=== PATIENT | male | born 1945 | race Caucasian/White ===

== ENCOUNTER → 2016-08-14 | Outpatient (CLI) | payer MEDICARE ==
--- NOTE | 2016-08-14 11:10 | RAD ---
EXAM: Bilateral lower extremity arterial Doppler sonogram. HISTORY: Pain. TECHNIQUE: Grayscale and color Doppler sonographic imaging of the lower 70 arteries with spectral waveform analysis was performed. COMPARISON: None. FINDINGS: There is atherosclerotic plaque and there are biphasic waveforms throughout the bilateral lower extremity arteries. The peak systolic velocities on the right measure 295 cm/s within the external iliac artery, 181 cm/s within the common femoral artery, 213 cm/s within the deep femoral artery, 269 cm/s within the proximal superficial femoral artery, 222 cm/s within the mid superficial femoral artery, 147 cm/s within the distal superficial femoral artery, 283 cm/s within the popliteal artery, 78 cm/s within the proximal posterior tibial artery, 212 cm/s with the distal posterior tibial artery, 160 cm/s within the peroneal artery, 240 cm/s within the anterior tibial artery, and 75 cm/s within the dorsalis pedis artery. The peak systolic velocities on the left measure 224 cm/s within the external iliac artery, 212 cm/s within the common femoral artery, 329 cm/s within the deep femoral artery, 259 cm/s within the proximal superficial femoral artery, 241 cm/s within the mid superficial femoral artery, 164 cm/s within the distal superficial femoral artery, 138 cm/s within the popliteal artery, 79 cm/s within the proximal posterior tibial artery, 97 cm/s with the distal posterior tibial artery, 58 cm/s within the peroneal artery, 201 cm/s within the anterior tibial artery, and 75 cm/s within the dorsalis pedis artery. IMPRESSION: 1. Bilateral lower extremity atherosclerotic plaque and elevated peak systolic velocities extending from the external iliac arteries to the anterior tibial arteries, with relative sparing of the posterior tibial arteries and left peroneal artery, consistent with hemodynamically significant stenosis. 2. No evidence of lower extremity arterial occlusion.
== END | disposition home or self-care (01) ==
LOC: US 09:40
PROVIDERS: ATTEND Family Medicine
DX: I73.9 Peripheral vascular disease, unspecified (principal); M79.605 Pain in left leg; M79.604 Pain in right leg; I74.3 Embolism and thrombosis of arteries of the lower extremities
CPT/HCPCS: 93925

== ENCOUNTER → 2016-09-16 | Outpatient (CLI) | payer MEDICARE ==
[2016-09-02 12:15] VITALS: BP 141/68
[~2016-09-16] MED LIST: ALBU2.5V14 NEB; FURO-68 PO; IPRA4AER IH; LISI10TA2 PO; POTA10TA5 PO; VENTOLIN HFA18 GM INH; VERA120C2 PO
--- NOTE | 2016-09-16 17:30 | RAD ---
INDICATION: COPD COMPARISON: 06/13/2010 FINDINGS: Frontal and lateral views of chest obtained. Coarsened lung markings throughout the bilateral lungs. Calcified nodule in the right lower lung, 13 mm. Cardiac silhouette is not enlarged IMPRESSION: Coarsened appearance throughout the bilateral lungs which can be seen with severe emphysema. Repeat demonstration of calcified nodule right lower lung, could be calcified granuloma.
== END | disposition home or self-care (01) ==
LOC: RAD 14:57
PROVIDERS: ATTEND Family Medicine
DX: J44.9 Chronic obstructive pulmonary disease, unspecified (principal)
CPT/HCPCS: 71020

== ENCOUNTER 2017-05-07 09:59 | Inpatient (IN) | payer MEDICARE ==
[~2017-05-07] VITALS: Ht 180.3 cm; Wt 75.0 kg
[2017-05-07] MEDS ORDERED: IPRATRPIUM/ALBUTEROL 0.5/2.5MG 3 ML NEBU. NEB ONE (10:15)
[2017-05-07] MEDS ORDERED: methylPREDNISolone SOD SUCC PF 125 MG/2 ML VIAL. IV ONE (10:15)
--- NOTE | 2017-05-07 10:19 | PHYS DOC ---
Adult General Chief Complaint Chief Complaint: SHORTNESS OF BREATH HPI HPI Patient is a 71 year old male who presents with complaint of shortness of breath for the past few days. The patient went to Dr. Rojo, his primary physician, this morning and was sent to the emergency department for further evaluation and treatment. Patient has history of COPD. The patient was found to have increased respiratory effort and required an increase in oxygen to keep his oxygen levels above 91%. Patient states that he has been coughing up whitish phlegm. Patient denies any fevers or chest pain at this time. Patient states that he does feel very weak and fatigued due to his difficulty breathing. Patient last took a breathing treatment yesterday and has not taken anything for his symptoms today. Review of Systems Review of Systems Constitutional: Fatigue, denies fever or chills [] Eyes: Denies change in visual acuity, redness, or eye pain [] HENT: Denies nasal congestion or sore throat [] Respiratory: Productive cough, shortness of breath[] Cardiovascular: Denies chest pain or edema[] GI: Denies abdominal pain, nausea, vomiting, bloody stools or diarrhea [] : Denies dysuria or hematuria [] Musculoskeletal: Denies back pain or joint pain [] Integument: Denies rash or skin lesions [] Neurologic: Denies headache, focal weakness or sensory changes [] Current Medications Current Medications Current Medications Medications (Trade) Dose Ordered Sig/Radha Start Time Stop Time Status Last Admin Dose Admin Albuterol/ Ipratropium (Duoneb) 6 ml 1X ONCE 05/07/17 10:15 05/07/17 10:18 DC 05/07/17 10:29 6 ML Methylprednisolone Sodium Succinate (SOLU-Medrol 125MG VIAL) 125 mg 1X ONCE 05/07/17 10:15 05/07/17 10:18 DC 05/07/17 10:38 125 MG Allergies Allergies Allergies Coded Allergies Type Severity Reaction Last Updated Verified No Known Drug Allergies 08/26/16 No Physical Exam Physical Exam Constitutional: Alert, afebrile, appears in mild to moderate risk for distress. [] HENT: Normocephalic, atraumatic, bilateral external ears normal, oropharynx moist, no oral exudates, nose normal. [] Eyes: PERRLA, EOMI, conjunctiva normal, no discharge. [] Neck: Normal range of motion, no tenderness, supple, no stridor. [] Cardiovascular:Heart rate regular rhythm, no murmur [] Lungs & Thorax: Severely strict of air movement bilaterally, faint extremity wheezes bilaterally, no rales[] Abdomen: Bowel sounds normal, soft, no tenderness, no masses, no pulsatile masses. [] Skin: Warm, dry, no erythema, no rash. [] Back: No tenderness, no CVA tenderness. [] Extremities: No tenderness, no cyanosis, no clubbing, ROM intact, no edema. [] Neurologic: Alert and oriented X 3, normal motor function, normal sensory function, no focal deficits noted. [] Current Patient Data Vital Signs Vital Signs Date Time Temp Pulse Resp B/P (MAP) Pulse Ox O2 Delivery O2 Flow Rate FiO2 05/07/17 11:05 80 20 115/59 (77) 99 Nasal Cannula 3.0 05/07/17 10:08 97.8 97.8 Lab Values Laboratory Tests Test 05/07/17 10:20 White Blood Count 21.3 x10^3/uL (4.0-11.0) H Red Blood Count 3.79 x10^6/uL (4.30-5.70) L Hemoglobin 11.4 g/dL (13.0-17.5) L Hematocrit 33.8 % (39.0-53.0) L Mean Corpuscular Volume 89 fL (79-100) Mean Corpuscular Hemoglobin 30 pg (25-35) Mean Corpuscular Hemoglobin Concent 34 g/dL (31-37) Red Cell Distribution Width 13.5 % (11.5-14.5) Platelet Count 201 x10^3/uL (140-400) Neutrophils (%) (Auto) 84 % (31-73) H Lymphocytes (%) (Auto) 6 % (24-48) L Monocytes (%) (Auto) 9 % (0-9) Eosinophils (%) (Auto) 0 % (0-3) Basophils (%) (Auto) 1 % (0-3) Neutrophils # (Auto) 17.8 x10^3uL (1.8-7.7) H Lymphocytes # (Auto) 1.4 x10^3/uL (1.0-4.8) Monocytes # (Auto) 2.0 x10^3/uL (0.0-1.1) H Eosinophils # (Auto) 0.0 x10^3/uL (0.0-0.7) Basophils # (Auto) 0.1 x10^3/uL (0.0-0.2) Platelet Estimate Pending Sodium Level 134 mmol/L (136-145) L Potassium Level 4.0 mmol/L (3.5-5.1) Chloride Level 98 mmol/L (98-107) Carbon Dioxide Level 29 mmol/L (21-32) Anion Gap 7 (6-14) Blood Urea Nitrogen 33 mg/dL (8-26) H Creatinine 2.9 mg/dL (0.7-1.3) H Estimated GFR (Cockcroft-Gault) 21.6 BUN/Creatinine Ratio 11 (6-20) Glucose Level 117 mg/dL (70-99) H Lactic Acid Level 1.6 mmol/L (0.4-2.0) Calcium Level 9.1 mg/dL (8.5-10.1) Total Bilirubin 0.6 mg/dL (0.2-1.0) Aspartate Amino Transferase (AST) 18 U/L (15-37) Alanine Aminotransferase (ALT) 27 U/L (16-63) Alkaline Phosphatase 67 U/L (46-116) Total Protein 7.9 g/dL (6.4-8.2) Albumin 3.3 g/dL (3.4-5.0) L Albumin/Globulin Ratio 0.7 (1.0-1.7) L Laboratory Tests 05/07/17 10:20 Laboratory Tests 05/07/17 10:20 EKG EKG Interpreted by me: Heart rate 88, sinus rhythm, multiple PACs, normal axis, no acute ST/T-wave abnormalities present[] Radiology/Procedures Radiology/Procedures [facility] [address] [place] [address] IMAGING REPORT Signed PATIENT: DANILO FIERRO ACCOUNT: [id number] : 1945 LOCATION: ER AGE: 71 SEX: M EXAM STATUS: REG ER ORD. PHYSICIAN: DANIELLE AUSTIN MD REASON: shortness of breath PROCEDURE: PORTABLE CHEST 1V Portable chest, 05/07/2017: History: Shortness of breath Comparison is made to a study from 09/16/2016. The heart size is normal. There is an unchanged coarse calcification in the right lower chest. Considerable pleural thickening is again noted in the apical regions with underlying streaky and patchy parenchymal opacities. The right upper lobe opacities appear to have worsened slightly. There are unchanged linear basilar opacities compatible with scars. No new pulmonary abnormality is seen. There is no evidence of pleural fluid. IMPRESSION: 1. Emphysema with moderate bilateral pleural/parenchymal scarring. 2. Right upper lobe parenchymal opacities appear to have worsened slightly raising the possibility of active infection. TB cannot be excluded. DICTATED and SIGNED BY: KAY AGUSTIN MD DATE: 05/07/17 1039 CC: DANIELLE AUSTIN MD; KEL ROJO MD ~ [] Course & Med Decision Making Course & Med Decision Making Pertinent Labs and Imaging studies reviewed. (See chart for details) The patient was started on IV Solu-Medrol and DuoNeb breathing treatments in the emergency department. Patient's chest x-ray shows right-sided upper lobe infiltrates consistent with acute pneumonia. The patient has had no recent travel or exposure to known tuberculosis infected patient, thus I feel these infiltrates or less likely the result of acute tuberculosis infection. The patient was started on IV Levaquin. I spoke with Dr. Rojo who accepted care patient in hospital. A consult was placed to Dr. Leggett of pulmonology to follow patient in hospital. Dragon Disclaimer Dragon Disclaimer This electronic medical record was generated, in whole or in part, using a voice recognition dictation system. Departure Departure Impression: Primary Impression: Community acquired pneumonia Additional Impressions: COPD with acute exacerbation Acute renal failure Disposition: 09 ADMITTED INPATIENT Admitting Physician: Kel Rojo Condition: GUARDED Referrals: KEL ROJO MD (PCP) Problem Qualifiers Primary Impression: Community acquired pneumonia Laterality: right Lung location: upper lobe of lung Qualified Codes: J18.1 - Lobar pneumonia, unspecified organism Additional Impressions: Acute renal failure Acute renal failure type: unspecified Qualified Codes: N17.9 - Acute kidney failure, unspecified DANIELLE AUSTIN MD May 07, 2017 10:19
[2017-05-07] MEDS: IPRATRPIUM/ALBUTEROL 0.5/2.5MG 3 ML NEBU. NEB SCH ×3 (10:29→19:39)
[2017-05-07 10:38] LABS: BASO # 0.1 x10^3/uL (0.0-0.2); BASO % 1 % (0-3); EOS % 0 % (0-3); HEMATOCRIT 33.8 % (39.0-53.0); HEMOGLOBIN 11.4 g/dL (13.0-17.5); LYMPH # 1.4 x10^3/uL (1.0-4.8); LYMPH % 6 % (24-48); MEAN CORPUSCULAR HEMOGLOBIN 30 pg (25-35); MEAN CORPUSCULAR HGB CONC 34 g/dL (31-37); MEAN CORPUSCULAR VOLUME 89 fL (79-100); MONO % 9 % (0-9); NEUT % 84 % (31-73); PLATELET COUNT 201 x10^3/uL (140-400); RED BLOOD COUNT 3.79 x10^6/uL (4.30-5.70); RED CELL DISTRIBUTION WIDTH 13.5 % (11.5-14.5); WHITE BLOOD COUNT 21.3 x10^3/uL (4.0-11.0)
[2017-05-07 10:39] LABS: CALCIUM 9.1 mg/dL (8.5-10.1); CREATININE 2.9 mg/dL (0.7-1.3); GFR 21.6
--- NOTE | 2017-05-07 10:40 | EKG ---
[facility] [address] [place] [address] Test Date: 2017-05-07 Test Time: 10:09:39 Pat Name: DANILO FIERRO Department: Room: Gender: M Reservations And Ticketing Agent: : 1945 Requested By: DANIELLE AUSTIN Order Number: [id number] Reading MD: Lawrence Graham Measurements Intervals [place] Rate: 88 P: 90 SC: 142 QRS: 19 QRSD: 86 T: 80 QT: 354 QTc: 432 Interpretive Statements SINUS RHYTHM ATRIAL PREMATURE COMPLEX(ES) QRS(T) CONTOUR ABNORMALITY CONSIDER ANTEROSEPTAL MYOCARDIAL DAMAGE T ABNORMALITY IN HIGH LATERAL LEADS Electronically Signed On 05-28-2017 16:38:41 CDT by Lawrence Graham
[2017-05-07 10:46] LABS: ALBUMIN 3.3 g/dL (3.4-5.0); ALBUMIN/GLOBULIN RATIO 0.7 (1.0-1.7); TOTAL BILIRUBIN 0.6 mg/dL (0.2-1.0); TOTAL PROTEIN 7.9 g/dL (6.4-8.2)
--- NOTE | 2017-05-07 10:48 | RAD ---
Portable chest, 05/07/2017: History: Shortness of breath Comparison is made to a study from 09/16/2016. The heart size is normal. There is an unchanged coarse calcification in the right lower chest. Considerable pleural thickening is again noted in the apical regions with underlying streaky and patchy parenchymal opacities. The right upper lobe opacities appear to have worsened slightly. There are unchanged linear basilar opacities compatible with scars. No new pulmonary abnormality is seen. There is no evidence of pleural fluid. IMPRESSION: 1. Emphysema with moderate bilateral pleural/parenchymal scarring. 2. Right upper lobe parenchymal opacities appear to have worsened slightly raising the possibility of active infection. TB cannot be excluded.
[2017-05-07] MEDS ORDERED: ALBUTEROL SULFATE 2.5 MG/3 ML NEBU. NEB ONE (11:15)
[2017-05-07] MEDS: IV NORMAL SALINE 1000ML BAG 1,000 ML IV SCH ×2 (11:42→18:22)
[2017-05-07] MEDS ORDERED: ACETAMINOPHEN 325 MG TABLET. PO PRN (11:45)
[2017-05-07] MEDS ORDERED: ONDANSETRON PF 4 MG/2 ML VIAL. IV PRN (11:45)
[2017-05-07] MEDS ORDERED: levOFLOXacin PER PHARMACY. MC PRN ×2 (11:45)
[2017-05-07 12:21] LABS: PLT ESTIMATE ADEQUATE (ADEQUATE)
[2017-05-07 12:25] VITALS: BP 128/56
[2017-05-07] MEDS ORDERED: IV NORMAL SALINE 1000ML BAG 1,000 ML IV SCH (12:35)
[2017-05-07] MEDS ORDERED: ENOXAPARIN 40 MG/0.4 ML SYRINGE. SQ SCH (12:45)
[2017-05-07] MEDS ORDERED: NON FORMULARY ITEM (Albuterol Sulfate (Ventolin Hfa Inhaler) 2 PUFF) INH SCH (13:00)
[2017-05-07] MEDS ORDERED: NON FORMULARY ITEM (Ipratropium/Albuterol Sulfate (Combivent Respimat Inhal) 2 INH) IH SCH (13:00)
--- NOTE | 2017-05-07 13:05 | PDOC ---
Provider Note Provider Note DICTATED BELTRAN BARRIOS MD May 07, 2017 13:05
--- NOTE | 2017-05-07 14:58 | CONS ---
DATE OF CONSULTATION: 05/07/2017 PULMONARY CONSULTATION ATTENDING PHYSICIAN: Dr. Rojo. REASON FOR CONSULTATION: Abnormal chest x-ray, hypoxia, persistent cough. HISTORY OF PRESENT ILLNESS: The patient is a 71-year-old male who has a history of COPD with extensive bullous lung disease involving the upper lobes. He presented to his primary care physician, Dr. Rojo with complaint of shortness of breath and was sent to the Emergency Room. The patient normally uses 3 liters of oxygen on a 24-hour basis. His oxygen saturation was 91% in the ER. The patient states that he has been coughing up for the last 1 year, is usually milky white. He denies any weight loss, in fact, states that he has gained weight. He smoked for 50 years, 1 pack per day, quit 3 years ago. He denies any hemoptysis. He states that he had a cold sweat this morning. He denies any chronic night sweats. He states that he had exposure to TB with his dad ____. His dad was treated. The patient's chest x-ray was reviewed and it shows mild patchy ill-defined parenchymal infiltrates in the right upper lobe, which upon my review, appear to be similar to the x-ray from September 2016. Radiologist felt that there was some mild increase and it may be a possibility. His CT chest was reviewed by me from 2012 up to 2015. He had extensive bullous lung disease involving the upper lobes along with a parenchymal scarring. He was started on antibiotics, Levaquin. I have been asked to see him for further evaluation. PAST MEDICAL HISTORY: Significant for history of COPD, could be severe. History of extensive bullous lung disease on his CT chest. History of chronic respiratory failure. ____ history of TB exposures. PAST SURGICAL HISTORY: No recent surgery. ALLERGIES: None. CURRENT MEDICATIONS: Reviewed as listed in the MRAD including Lovenox for DVT prophylaxis, DuoNebs and Levaquin. REVIEW OF SYSTEMS: Twelve-point system obtained. Pertinent positives discussed in my history of present illness, otherwise noncontributory. All systems that were negative were reviewed as well. SOCIAL HISTORY: Smoked for 50 years, quit 3 years ago, 1 pack per day. He does have TB exposure to his dad in the 50s. PHYSICAL EXAMINATION: GENERAL: He is awake, following commands, in no obvious respiratory distress. VITAL SIGNS: His pulse ox is 99% on 3 liters. He is afebrile. HEENT: Sclerae nonicteric. NECK: Supple. LUNGS: Diminished breath sounds. CARDIOVASCULAR: Regular rate and rhythm. ABDOMEN: Soft. EXTREMITIES: With no pitting edema. LABORATORY DATA: Reviewed. White cell count 21.3, hemoglobin 11.4 and platelets are 201. Chemistries were reviewed. BUN 33 and creatinine 2.9. IMPRESSION: Suspected severe chronic obstructive pulmonary disease with chronic respiratory failure and extensive upper lobe bullous lung disease, now presents with increasing cough and mild exertional dyspnea. In fact, the cough has been chronic and is productive of milky sputum. He has no obvious weight loss. He does have a history of tuberculosis exposure in the 50s and at that time, his dad was treated for that condition. He has no chronic night sweats. The differential diagnoses would include: 1. Superimposed pneumonia involving the right upper lobe in a patient who has severe underlying bullous lung disease. 2. Cannot exclude the possibilities of chronic infection such as Mycobacterium avium complex infection. 3. Clinically, less likely Mycobacterium tuberculosis. 4. Underlying severe chronic obstructive pulmonary disease with extensive bullous lung disease. RECOMMENDATIONS: 1. Obtain noncontrast CT chest to better assess for parenchymal infiltrates and the extensive bullous lung disease and we will make comparison from previous CAT scans. 2. Continue with empiric antibiotic. 3. Obtain sputum for culture, sensitivity and AFB. 4. Continue present oxygen. 5. Continue bronchodilators. 6. Further recommendations to follow after review of CT chest and we will assess the need for bronchoscopy. Discussed with RN. BELTRAN BARRIOS MD DR: LAKHWINDER/james JOB#: [id number] / [id number]
[2017-05-07 15:00] VITALS: BP 130/58
[2017-05-07] MEDS: VERAPAMIL SR 120 MG TABLET.ER. PO SCH (15:15)
[2017-05-07] MEDS: LISINOPRIL 10 MG TABLET PO SCH (15:16)
--- NOTE | 2017-05-07 15:39 | RAD ---
CT chest Indication: Right upper lobe pneumonia Technique: CT chest without IV contrast with multiplanar reformats. Comparison: Chest x-ray from the same day and CT chest from 05/17/2016 Findings: Neck bases clear. Heart is normal in size. Coronary artery calcifications. No pericardial or pleural effusion. No axillary, mediastinal adenopathy. Calcified subcarinal and right hilar lymph nodes. Bilateral apical pleural thickening. Severe emphysematous changes seen within lungs with areas of scarring and bronchiectasis. Large calcified granuloma in the right middle lobe. No pneumothorax. Punctate calcified granulomas along the right major fissure. Ill-defined opacity seen in the left upper lobe approximately measuring 1.0 x 2.6 cm (series 2 image 30), new compared to prior study. Similar opacitiy seen in the right upper lobe measuring 1.5 x 1.0 cm (series 2 image 20). Punctate calcified foci in the spleen suggesting healed granulomatous disease. Probable small gallstones. Adrenal glands are within normal limits. No suspicious bony lesion. Impression: 1. Severe emphysema changes. 2. New Ill-defined opacities in the right upper lobe and left upper lobe as described above may represent confluent fibrosis. However, lung malignancy is not ruled out. Short-term follow-up in 3 months and/or PET/CT recommended. 3. Stable thickening of the bilateral apical pleura. PQRS Compliance Statement: One or more of the following individualized dose reduction techniques were utilized for this examination: 1. Automated exposure control 2. Adjustment of the mA and/or kV according to patient size 3. Use of iterative reconstruction technique
[2017-05-07] MEDS ORDERED: PRED-220 PO (17:21)
[2017-05-07] MEDS ORDERED: [UNRECOGNIZED DRUG - OTHER] PO (17:21)
--- NOTE | 2017-05-07 18:30 | HP ---
ADMIT DATE: 05/07/2017 CHIEF COMPLAINT: Shortness of breath. HISTORY OF PRESENT ILLNESS AND HOSPITAL COURSE: This patient is a 71-year-old male with known severe emphysema who came to the office for routine checkup, was found to be acutely ill, stating that he had been increasingly short of breath for the last 3 days. The patient was hypoxic in the office and oxygen was increased to 5 liters obtaining an O2 sat of 90% which would quickly drop with any activity. Due to severity of illness, the patient was directed to go directly to the Emergency Room for evaluation where he was evaluated and found to have hypoxemia with exacerbation of COPD and evidence of community-acquired pneumonia on chest x-ray. Due to severity of illness, he was admitted directly to the hospital for further evaluation and treatment and pulmonary consultation. The patient was started on routine breathing treatments, IV steroids, and IV antibiotics were given. PAST MEDICAL HISTORY: Significant for: 1. COPD. 2. History of congestive heart failure. 3. Hypertension. 4. Peripheral vascular disease. 5. Peripheral neuropathy. MEDICATIONS ON ADMISSION: Verapamil 120 mg daily, Pletal 100 mg b.i.d., Combivent inhaler 1 puff q.i.d., albuterol inhaler 2 puffs q. 6 p.r.n., 2 liters of oxygen continuously, albuterol nebulizer solutions q. 4 hours p.r.n., gabapentin 200 mg 3 times a day, prednisone 10 mg a day, Lasix 40 mg a day, potassium 10 mEq a day, lisinopril 10 mg a day, Flovent 220 mcg 2 puffs b.i.d. ALLERGIES: He has no known drug allergies. PAST SURGICAL HISTORY: Denies surgery. FAMILY HISTORY: Significant for mother who of congestive heart failure, father who with complications of tuberculosis, a brother who has emphysema, a sister who has breast cancer with brain metastasis apparently. SOCIAL HISTORY: He has a greater than 40-pack years history of smoking, quit smoking 6 years ago. He lives with his brother. The patient is on disability due to significant vision loss as well as ongoing COPD. REVIEW OF SYSTEMS: Positive for increasing shortness of breath and cough as well as ongoing fatigue. The patient denies fever or chills. The patient denies nausea, vomiting or diarrhea. PHYSICAL EXAMINATION: GENERAL: This is a thin male, in moderate distress. He is alert and oriented. HEENT: Revealed dry mucous membranes. NECK: Supple, without JVD or bruits. CARDIAC: Regular rate and rhythm. LUNGS: Reveal coarse breath sounds with wheezes bilaterally. ABDOMEN: Soft, nontender. EXTREMITIES: Have 1+ pulses without significant edema. NEUROLOGIC: Showed no unilateral findings. ASSESSMENT: 1. Acute on chronic respiratory failure. 2. Exacerbation of chronic obstructive pulmonary disease. 3. Acute on chronic renal failure with baseline creatinine of 1.2, current creatinine of 2.9. 4. Peripheral vascular disease. 5. Hypertension. PLAN: To proceed with IV antibiotics, pulmonary toilet including IV steroids and breathing treatments and oxygen support and consult pulmonary medicine for further evaluation and treatment. MATT PAYTON MD DR: JEFFRY/james JOB#: [id number] / [id number]
[2017-05-07 19:00] VITALS: BP 93/49
[2017-05-07 23:00] VITALS: BP 103/58
[2017-05-08] MEDS: IV NORMAL SALINE 1000ML BAG 1,000 ML IV SCH ×2 (01:02→07:42)
[2017-05-08 03:00] VITALS: BP 118/50
[2017-05-08 04:41] LABS: BASO % 0 % (0-3); EOS % 0 % (0-3); HEMOGLOBIN 9.9 g/dL (13.0-17.5); LYMPH # 0.4 x10^3/uL (1.0-4.8); LYMPH % 4 % (24-48); MEAN CORPUSCULAR HEMOGLOBIN 31 pg (25-35); MEAN CORPUSCULAR HGB CONC 34 g/dL (31-37); MEAN CORPUSCULAR VOLUME 90 fL (79-100); MONO % 3 % (0-9); NEUT % 93 % (31-73); PLATELET COUNT 157 x10^3/uL (140-400); RED BLOOD COUNT 3.23 x10^6/uL (4.30-5.70); RED CELL DISTRIBUTION WIDTH 13.3 % (11.5-14.5); WHITE BLOOD COUNT 9.3 x10^3/uL (4.0-11.0)
[2017-05-08 05:00] LABS: ALBUMIN 2.7 g/dL (3.4-5.0); ALBUMIN/GLOBULIN RATIO 0.6 (1.0-1.7); CALCIUM 8.7 mg/dL (8.5-10.1); CREATININE 2.1 mg/dL (0.7-1.3); GFR 31.4; POTASSIUM 5.3 mmol/L (3.5-5.1); TOTAL BILIRUBIN 0.2 mg/dL (0.2-1.0); TOTAL PROTEIN 7.1 g/dL (6.4-8.2)
[2017-05-08 07:00] VITALS: BP 136/55
[2017-05-08] MEDS: IPRATRPIUM/ALBUTEROL 0.5/2.5MG 3 ML NEBU. NEB SCH ×3 (08:00→15:39)
[2017-05-08] MEDS: ENOXAPARIN 30 MG/0.3 ML SYRINGE. SQ SCH (08:48)
[2017-05-08] MEDS: VERAPAMIL SR 120 MG TABLET.ER. PO SCH (08:48)
[2017-05-08] MEDS: LISINOPRIL 10 MG TABLET PO SCH (08:48)
[2017-05-08 10:50] VITALS: BP 100/39
--- NOTE | 2017-05-08 12:02 | PDOC ---
PULMONARY PROGRESS NOTES Subjective feels better Vitals Vital Signs Date Time Temp Pulse Resp B/P (MAP) Pulse Ox O2 Delivery O2 Flow Rate FiO2 05/08/17 10:50 97.7 59 18 100/39 (59) 100 Nasal Cannula 3.0 97.7 General: Alert, No acute distress Lungs: Other (decrease bases) Cardiovascular: S1 Abdomen: Soft Neuro Exam: Alert Extremities: No Edema Skin: Warm Labs Laboratory Tests Test 05/07/17 10:20 05/08/17 04:18 White Blood Count 21.3 x10^3/uL (4.0-11.0) 9.3 x10^3/uL (4.0-11.0) Red Blood Count 3.79 x10^6/uL (4.30-5.70) 3.23 x10^6/uL (4.30-5.70) Hemoglobin 11.4 g/dL (13.0-17.5) 9.9 g/dL (13.0-17.5) Hematocrit 33.8 % (39.0-53.0) 29.0 % (39.0-53.0) Mean Corpuscular Volume 89 fL (79-100) 90 fL (79-100) Mean Corpuscular Hemoglobin 30 pg (25-35) 31 pg (25-35) Mean Corpuscular Hemoglobin Concent 34 g/dL (31-37) 34 g/dL (31-37) Red Cell Distribution Width 13.5 % (11.5-14.5) 13.3 % (11.5-14.5) Platelet Count 201 x10^3/uL (140-400) 157 x10^3/uL (140-400) Neutrophils (%) (Auto) 84 % (31-73) 93 % (31-73) Lymphocytes (%) (Auto) 6 % (24-48) 4 % (24-48) Monocytes (%) (Auto) 9 % (0-9) 3 % (0-9) Eosinophils (%) (Auto) 0 % (0-3) 0 % (0-3) Basophils (%) (Auto) 1 % (0-3) 0 % (0-3) Neutrophils # (Auto) 17.8 x10^3uL (1.8-7.7) 8.6 x10^3uL (1.8-7.7) Lymphocytes # (Auto) 1.4 x10^3/uL (1.0-4.8) 0.4 x10^3/uL (1.0-4.8) Monocytes # (Auto) 2.0 x10^3/uL (0.0-1.1) 0.2 x10^3/uL (0.0-1.1) Eosinophils # (Auto) 0.0 x10^3/uL (0.0-0.7) 0.0 x10^3/uL (0.0-0.7) Basophils # (Auto) 0.1 x10^3/uL (0.0-0.2) 0.0 x10^3/uL (0.0-0.2) Segmented Neutrophils % 85 % (35-66) Band Neutrophils % 1 % (0-9) Lymphocytes % 4 % (24-48) Atypical Lymphocytes % (Manual) 1 % (0-0) Monocytes % 9 % (0-10) Platelet Estimate Adequate (ADEQUATE) Sodium Level 134 mmol/L (136-145) 136 mmol/L (136-145) Potassium Level 4.0 mmol/L (3.5-5.1) 5.3 mmol/L (3.5-5.1) Chloride Level 98 mmol/L (98-107) 101 mmol/L (98-107) Carbon Dioxide Level 29 mmol/L (21-32) 31 mmol/L (21-32) Anion Gap 7 (6-14) 4 (6-14) Blood Urea Nitrogen 33 mg/dL (8-26) 38 mg/dL (8-26) Creatinine 2.9 mg/dL (0.7-1.3) 2.1 mg/dL (0.7-1.3) Estimated GFR (Cockcroft-Gault) 21.6 31.4 BUN/Creatinine Ratio 11 (6-20) 18 (6-20) Glucose Level 117 mg/dL (70-99) 160 mg/dL (70-99) Lactic Acid Level 1.6 mmol/L (0.4-2.0) Calcium Level 9.1 mg/dL (8.5-10.1) 8.7 mg/dL (8.5-10.1) Total Bilirubin 0.6 mg/dL (0.2-1.0) 0.2 mg/dL (0.2-1.0) Aspartate Amino Transf (AST/SGOT) 18 U/L (15-37) 12 U/L (15-37) Alanine Aminotransferase (ALT/SGPT) 27 U/L (16-63) 26 U/L (16-63) Alkaline Phosphatase 67 U/L (46-116) 57 U/L (46-116) Total Protein 7.9 g/dL (6.4-8.2) 7.1 g/dL (6.4-8.2) Albumin 3.3 g/dL (3.4-5.0) 2.7 g/dL (3.4-5.0) Albumin/Globulin Ratio 0.7 (1.0-1.7) 0.6 (1.0-1.7) Laboratory Tests Test 05/08/17 04:18 White Blood Count 9.3 x10^3/uL (4.0-11.0) Red Blood Count 3.23 x10^6/uL (4.30-5.70) Hemoglobin 9.9 g/dL (13.0-17.5) Hematocrit 29.0 % (39.0-53.0) Mean Corpuscular Volume 90 fL (79-100) Mean Corpuscular Hemoglobin 31 pg (25-35) Mean Corpuscular Hemoglobin Concent 34 g/dL (31-37) Red Cell Distribution Width 13.3 % (11.5-14.5) Platelet Count 157 x10^3/uL (140-400) Neutrophils (%) (Auto) 93 % (31-73) Lymphocytes (%) (Auto) 4 % (24-48) Monocytes (%) (Auto) 3 % (0-9) Eosinophils (%) (Auto) 0 % (0-3) Basophils (%) (Auto) 0 % (0-3) Neutrophils # (Auto) 8.6 x10^3uL (1.8-7.7) Lymphocytes # (Auto) 0.4 x10^3/uL (1.0-4.8) Monocytes # (Auto) 0.2 x10^3/uL (0.0-1.1) Eosinophils # (Auto) 0.0 x10^3/uL (0.0-0.7) Basophils # (Auto) 0.0 x10^3/uL (0.0-0.2) Sodium Level 136 mmol/L (136-145) Potassium Level 5.3 mmol/L (3.5-5.1) Chloride Level 101 mmol/L (98-107) Carbon Dioxide Level 31 mmol/L (21-32) Anion Gap 4 (6-14) Blood Urea Nitrogen 38 mg/dL (8-26) Creatinine 2.1 mg/dL (0.7-1.3) Estimated GFR (Cockcroft-Gault) 31.4 BUN/Creatinine Ratio 18 (6-20) Glucose Level 160 mg/dL (70-99) Calcium Level 8.7 mg/dL (8.5-10.1) Total Bilirubin 0.2 mg/dL (0.2-1.0) Aspartate Amino Transf (AST/SGOT) 12 U/L (15-37) Alanine Aminotransferase (ALT/SGPT) 26 U/L (16-63) Alkaline Phosphatase 57 U/L (46-116) Total Protein 7.1 g/dL (6.4-8.2) Albumin 2.7 g/dL (3.4-5.0) Albumin/Globulin Ratio 0.6 (1.0-1.7) Medications Active Scripts Medications Dose Route/Sig Max Daily Dose Days Date Category [Ambivent Respimat] PO DAILY 05/07/17 Reported Prednisone 10 Mg Tablet 10 Mg PO DAILY 05/07/17 Reported Klor-Con 10 (Potassium Chloride) 10 Meq Tablet.er 10 Meq PO DAILY 08/26/16 Reported Lisinopril 10 Mg Tablet 10 Mg PO DAILY 08/26/16 Reported Lasix (Furosemide) 40 Mg Tablet 40 Mg PO DAILY 08/26/16 Reported Albuterol Sulfate Conc Neb Soln (Albuterol Sulfate) 2.5 Mg/0.5 Ml Vial.neb 1 Vial NEB Q6HRS 08/26/16 Reported Ventolin Hfa Inhaler (Albuterol Sulfate) 18 Gm Hfa.aer.ad 2 Puff INH QID 08/26/16 Reported Combivent Respimat Inhal (Ipratropium/Albuterol Sulfate) 4 Gm Aer.w.adap 2 Inh IH QID 08/26/16 Reported Verapamil Er (Verapamil Hcl) 120 Mg Cap24h.pel 120 Mg PO DAILY 08/26/16 Reported Impression . Suspected severe chronic obstructive pulmonary disease with chronic respiratory failure and extensive upper lobe bullous lung disease, now presents with increasing cough and mild exertional dyspnea. In fact, the cough has been chronic and is productive of milky sputum. He has no obvious weight loss. He does have a history of tuberculosis exposure in the 50s and at that time, his dad was treated for that condition. He has no chronic night sweats. The differential diagnoses would include: 1. Superimposed pneumonia involving the upper lobes in a patient who has severe underlying bullous lung disease. 2. Cannot exclude the possibilities of chronic infection such as Mycobacterium avium complex infection. 3. Clinically, less likely Mycobacterium tuberculosis. 4. Underlying severe chronic obstructive pulmonary disease with extensive bullous lung disease. Plan . 1. CT chest reviewed. He has mild new parenchymal infiltrates in upper lobes c /w new inflammatory process 2. sputum growing gram neg rods/ gram positive cocci 3. add van, continue levaquin. If PSA grows, will add Zosyn 4. Continue present oxygen. 5. Continue bronchodilators. 6. d/w pts brother. no need for bronchoscopy at present.. BELTRAN BARRIOS MD May 08, 2017 12:02
[2017-05-08] MEDS ORDERED: VANCOMYCIN 1.75 GM in IV NORMAL SALINE 500ML BAG 500 ML IV ONE (12:30)
[2017-05-08 15:00] VITALS: BP 104/40
[2017-05-08] MEDS: VANCOMYCIN PER PHARMACY MC PRN (15:45)
--- NOTE | 2017-05-08 17:53 | PDOC ---
PROGRESS NOTES Subjective Subjective Patient feeling better with options support primary toilet and IV antibiotics. Appreciate pulmonary consult. Sputum culture with gram-negative rods and gram- positive cocci seen. Objective Objective Vital Signs Date Time Temp Pulse Resp B/P (MAP) Pulse Ox O2 Delivery O2 Flow Rate FiO2 05/08/17 15:39 99 Nasal Cannula 3.0 05/08/17 15:00 97.7 60 18 104/40 (61) 97.7 Intake and Output 05/09/17 07:00 Intake Total 2080 ml Balance 2080 ml Intake Oral 1580 ml IV Total 500 ml # Voids 2 Physical Exam Abdomen: Normal bowel sounds Heart: Regular rate Extremities: No edema General: Alert Lungs: Clear to auscultation Assessment Assessment Problems Medical Problems: (1) Acute renal failure Status: Acute (2) Community acquired pneumonia Status: Acute (3) COPD with acute exacerbation Status: Acute Community-acquired pneumonia Acute on chronic respiratory failure. Exacerbation of chronic obstructive pulmonary disease. Acute on chronic renal failure with baseline creatinine of 1.2, current creatinine of 2.9. Peripheral vascular disease. Hypertension. Plan Plan of Care Continue IV antibiotics. Continue PT and OT modalities. Continue oxygen and breathing treatments. Await sputum culture results and sensitivities Change to by mouth antibiotics and discharged to home when stable. Comment Review of Relevant I have reviewed the following items delmer (where applicable) has been applied. Labs Laboratory Tests Test 05/07/17 10:20 05/08/17 04:18 White Blood Count 21.3 x10^3/uL (4.0-11.0) 9.3 x10^3/uL (4.0-11.0) Red Blood Count 3.79 x10^6/uL (4.30-5.70) 3.23 x10^6/uL (4.30-5.70) Hemoglobin 11.4 g/dL (13.0-17.5) 9.9 g/dL (13.0-17.5) Hematocrit 33.8 % (39.0-53.0) 29.0 % (39.0-53.0) Mean Corpuscular Volume 89 fL (79-100) 90 fL (79-100) Mean Corpuscular Hemoglobin 30 pg (25-35) 31 pg (25-35) Mean Corpuscular Hemoglobin Concent 34 g/dL (31-37) 34 g/dL (31-37) Red Cell Distribution Width 13.5 % (11.5-14.5) 13.3 % (11.5-14.5) Platelet Count 201 x10^3/uL (140-400) 157 x10^3/uL (140-400) Neutrophils (%) (Auto) 84 % (31-73) 93 % (31-73) Lymphocytes (%) (Auto) 6 % (24-48) 4 % (24-48) Monocytes (%) (Auto) 9 % (0-9) 3 % (0-9) Eosinophils (%) (Auto) 0 % (0-3) 0 % (0-3) Basophils (%) (Auto) 1 % (0-3) 0 % (0-3) Neutrophils # (Auto) 17.8 x10^3uL (1.8-7.7) 8.6 x10^3uL (1.8-7.7) Lymphocytes # (Auto) 1.4 x10^3/uL (1.0-4.8) 0.4 x10^3/uL (1.0-4.8) Monocytes # (Auto) 2.0 x10^3/uL (0.0-1.1) 0.2 x10^3/uL (0.0-1.1) Eosinophils # (Auto) 0.0 x10^3/uL (0.0-0.7) 0.0 x10^3/uL (0.0-0.7) Basophils # (Auto) 0.1 x10^3/uL (0.0-0.2) 0.0 x10^3/uL (0.0-0.2) Segmented Neutrophils % 85 % (35-66) Band Neutrophils % 1 % (0-9) Lymphocytes % 4 % (24-48) Atypical Lymphocytes % (Manual) 1 % (0-0) Monocytes % 9 % (0-10) Platelet Estimate Adequate (ADEQUATE) Sodium Level 134 mmol/L (136-145) 136 mmol/L (136-145) Potassium Level 4.0 mmol/L (3.5-5.1) 5.3 mmol/L (3.5-5.1) Chloride Level 98 mmol/L (98-107) 101 mmol/L (98-107) Carbon Dioxide Level 29 mmol/L (21-32) 31 mmol/L (21-32) Anion Gap 7 (6-14) 4 (6-14) Blood Urea Nitrogen 33 mg/dL (8-26) 38 mg/dL (8-26) Creatinine 2.9 mg/dL (0.7-1.3) 2.1 mg/dL (0.7-1.3) Estimated GFR (Cockcroft-Gault) 21.6 31.4 BUN/Creatinine Ratio 11 (6-20) 18 (6-20) Glucose Level 117 mg/dL (70-99) 160 mg/dL (70-99) Lactic Acid Level 1.6 mmol/L (0.4-2.0) Calcium Level 9.1 mg/dL (8.5-10.1) 8.7 mg/dL (8.5-10.1) Total Bilirubin 0.6 mg/dL (0.2-1.0) 0.2 mg/dL (0.2-1.0) Aspartate Amino Transf (AST/SGOT) 18 U/L (15-37) 12 U/L (15-37) Alanine Aminotransferase (ALT/SGPT) 27 U/L (16-63) 26 U/L (16-63) Alkaline Phosphatase 67 U/L (46-116) 57 U/L (46-116) Total Protein 7.9 g/dL (6.4-8.2) 7.1 g/dL (6.4-8.2) Albumin 3.3 g/dL (3.4-5.0) 2.7 g/dL (3.4-5.0) Albumin/Globulin Ratio 0.7 (1.0-1.7) 0.6 (1.0-1.7) Laboratory Tests Test 05/08/17 04:18 White Blood Count 9.3 x10^3/uL (4.0-11.0) Red Blood Count 3.23 x10^6/uL (4.30-5.70) Hemoglobin 9.9 g/dL (13.0-17.5) Hematocrit 29.0 % (39.0-53.0) Mean Corpuscular Volume 90 fL (79-100) Mean Corpuscular Hemoglobin 31 pg (25-35) Mean Corpuscular Hemoglobin Concent 34 g/dL (31-37) Red Cell Distribution Width 13.3 % (11.5-14.5) Platelet Count 157 x10^3/uL (140-400) Neutrophils (%) (Auto) 93 % (31-73) Lymphocytes (%) (Auto) 4 % (24-48) Monocytes (%) (Auto) 3 % (0-9) Eosinophils (%) (Auto) 0 % (0-3) Basophils (%) (Auto) 0 % (0-3) Neutrophils # (Auto) 8.6 x10^3uL (1.8-7.7) Lymphocytes # (Auto) 0.4 x10^3/uL (1.0-4.8) Monocytes # (Auto) 0.2 x10^3/uL (0.0-1.1) Eosinophils # (Auto) 0.0 x10^3/uL (0.0-0.7) Basophils # (Auto) 0.0 x10^3/uL (0.0-0.2) Sodium Level 136 mmol/L (136-145) Potassium Level 5.3 mmol/L (3.5-5.1) Chloride Level 101 mmol/L (98-107) Carbon Dioxide Level 31 mmol/L (21-32) Anion Gap 4 (6-14) Blood Urea Nitrogen 38 mg/dL (8-26) Creatinine 2.1 mg/dL (0.7-1.3) Estimated GFR (Cockcroft-Gault) 31.4 BUN/Creatinine Ratio 18 (6-20) Glucose Level 160 mg/dL (70-99) Calcium Level 8.7 mg/dL (8.5-10.1) Total Bilirubin 0.2 mg/dL (0.2-1.0) Aspartate Amino Transf (AST/SGOT) 12 U/L (15-37) Alanine Aminotransferase (ALT/SGPT) 26 U/L (16-63) Alkaline Phosphatase 57 U/L (46-116) Total Protein 7.1 g/dL (6.4-8.2) Albumin 2.7 g/dL (3.4-5.0) Albumin/Globulin Ratio 0.6 (1.0-1.7) Microbiology 05/07/17 Blood Culture - Preliminary, Resulted NO GROWTH AFTER 1 DAY 05/07/17 - Final, Resulted 05/07/17 - Final, Resulted 05/07/17 - Final, Resulted 05/07/17 - Final, Resulted 05/07/17 Gram Stain Evaluation - Final, Resulted 05/07/17 Sputum Culture, Resulted Pending 05/07/17 Sputum Result 1, Resulted Pending Medications Current Medications Albuterol/ Ipratropium (Duoneb) 6 ml 1X ONCE NEB Last administered on 10:29; Start 05/07/17 at 10:15; Stop 05/07/17 at 10:18; Status DC Methylprednisolone Sodium Succinate (SOLU-Medrol 125MG VIAL) 125 mg 1X ONCE IV Last administered on 05/07/17 10:38; Start 05/07/17 at 10:15; Stop 05/07/17 at 10:18; Status DC Albuterol Sulfate (Ventolin Neb Soln) 5 mg 1X ONCE NEB Last administered on 11:17; Start 05/07/17 at 11:15; Stop 05/07/17 at 11:16; Status DC Levofloxacin/ Dextrose (Levaquin Per Pharmacy) 1 each PRN DAILY PRN MC SEE COMMENTS; Start 05/07/17 at 11:45; Status UNV Levofloxacin/ Dextrose (Levaquin Per Pharmacy) 1 each PRN DAILY PRN MC SEE COMMENTS; Start 05/07/17 at 11:45 Levofloxacin/ Dextrose 150 ml @ 100 mls/hr Q48H IV Last administered on 11:56; Start 05/07/17 at 12:00 Ondansetron HCl (Zofran) 4 mg PRN Q8HRS PRN IV NAUSEA/VOMITING; Start 05/07/17 at 11:45; Stop 05/08/17 at 11:44; Status DC Sodium Chloride 1,000 ml @ 150 mls/hr Q6H40M IV ; Start 05/07/17 at 11:42; Stop 05/08/17 at 11:41; Status DC Acetaminophen (Tylenol) 650 mg PRN Q4HRS PRN PO FEVER; Start 05/07/17 at 11:45 ; Stop 05/08/17 at 11:44; Status DC Albuterol/ Ipratropium (Duoneb) 3 ml RTQID NEB Last administered on 05/08/17 15:39; Start 05/07/17 at 12:00; Stop 05/08/17 at 11:59; Status DC Lisinopril (Prinivil) 10 mg DAILY PO Last administered on 05/08/17 08:48; Start 05/07/17 at 13:00 Non-Formulary Medication 2 puff QID INH ; Start 05/07/17 at 13:00; Status UNV Non-Formulary Medication 2 inh QID IH ; Start 05/07/17 at 13:00; Status UNV Verapamil HCl (Calan Sr) 120 mg DAILY PO Last administered on 05/08/17 08:48; Start 05/07/17 at 13:00 Sodium Chloride 1,000 ml @ 100 mls/hr Q10H IV Last administered on 05/07/17 15:15; Start 05/07/17 at 12:35; Stop 05/07/17 at 22:34; Status DC Enoxaparin Sodium (Lovenox 40mg Syringe) 40 mg Q24H SQ Last administered on 15:15; Start 05/07/17 at 12:45; Stop 05/07/17 at 16:24; Status DC Enoxaparin Sodium (Lovenox 30mg Syringe) 30 mg Q24H SQ Last administered on 08:48; Start 05/08/17 at 09:00 Vancomycin HCl (Vanco Per Pharmacy) 1 each PRN DAILY PRN MC SEE COMMENTS Last administered on 05/08/17 15:45; Start 05/08/17 at 12:15 Vancomycin HCl 1.75 gm/Sodium Chloride 500 ml @ 250 mls/hr 1X ONCE IV Last administered on 05/08/17 13:04; Start 05/08/17 at 12:30; Stop 05/08/17 at 14:29 ; Status DC Vancomycin HCl 1 gm/Sodium Chloride 250 ml @ 250 mls/hr Q12H IV ; Start at 13:00 Vancomycin HCl 1 each 1X ONCE MC ; Start 05/10/17 at 12:30; Stop 05/10/17 at 12 :31 Albuterol Sulfate (Ventolin Neb Soln) 2.5 mg RTQID NEB ; Start 05/08/17 at 20:00 Active Scripts Active Reported [Ambivent Respimat] PO DAILY Prednisone 10 Mg Tablet 10 Mg PO DAILY Klor-Con 10 (Potassium Chloride) 10 Meq Tablet.er 10 Meq PO DAILY Lisinopril 10 Mg Tablet 10 Mg PO DAILY Lasix (Furosemide) 40 Mg Tablet 40 Mg PO DAILY Albuterol Sulfate Conc Neb Soln (Albuterol Sulfate) 2.5 Mg/0.5 Ml Vial.neb 1 Vial NEB Q6HRS Ventolin Hfa Inhaler (Albuterol Sulfate) 18 Gm Hfa.aer.ad 2 Puff INH QID Combivent Respimat Inhal (Ipratropium/Albuterol Sulfate) 4 Gm Aer.w.adap 2 Inh IH QID Verapamil Er (Verapamil Hcl) 120 Mg Cap24h.pel 120 Mg PO DAILY Vitals/I & O Vital Sign - Last 24 Hours 05/07/17 05/07/17 05/07/17 05/08/17 19:00 19:40 23:00 03:00 Temp 96.4 96.4 96.3 96.4 96.4 96.3 Pulse 67 57 57 Resp 18 18 18 B/P (MAP) 93/49 (64) 103/58 (73) 118/50 (72) Pulse Ox 98 99 100 99 O2 Delivery Nasal Cannula Nasal Cannula Nasal Cannula Nasal Cannula O2 Flow Rate 2.0 2.0 3.0 3.0 05/08/17 05/08/17 05/08/17 05/08/17 07:00 08:00 08:16 08:48 Temp 97.7 97.7 Pulse 63 63 Resp 18 B/P (MAP) 136/55 (82) 136/55 Pulse Ox 98 100 O2 Delivery Nasal Cannula Nasal Cannula Nasal Cannula O2 Flow Rate 3.0 3.0 3.0 05/08/17 05/08/17 05/08/17 05/08/17 08:48 10:50 12:56 15:00 Temp 97.7 97.7 97.7 97.7 Pulse 63 59 60 Resp 18 18 B/P (MAP) 136/55 100/39 (59) 104/40 (61) Pulse Ox 100 100 98 O2 Delivery Nasal Cannula Nasal Cannula Nasal Cannula O2 Flow Rate 3.0 4.0 3.0 05/08/17 15:39 Pulse Ox 99 O2 Delivery Nasal Cannula O2 Flow Rate 3.0 Intake and Output 05/08/17 05/08/1705/09/17 15:00 23:00 07:00 Intake Total 600 ml 1480 ml Balance 600 ml 1480 ml MATT PAYTON MD May 08, 2017 17:53
[2017-05-08 19:00] VITALS: BP 111/39
[2017-05-08] MEDS: ALBUTEROL SULFATE 2.5 MG/3 ML NEBU. NEB SCH (19:35)
[2017-05-08 23:00] VITALS: BP 116/47
[2017-05-09 03:00] VITALS: BP 117/59
[2017-05-09 05:30] LABS: HEMATOCRIT 25.7 % (39.0-53.0); HEMOGLOBIN 8.6 g/dL (13.0-17.5); RED BLOOD COUNT 2.87 x10^6/uL (4.30-5.70); RED CELL DISTRIBUTION WIDTH 13.1 % (11.5-14.5); WHITE BLOOD COUNT 11.5 x10^3/uL (4.0-11.0)
[2017-05-09 05:43] LABS: CALCIUM 8.6 mg/dL (8.5-10.1); CREATININE 1.6 mg/dL (0.7-1.3); GFR 42.9; POTASSIUM 4.3 mmol/L (3.5-5.1)
[2017-05-09 07:00] VITALS: BP 138/51
[2017-05-09] MEDS: ALBUTEROL SULFATE 2.5 MG/3 ML NEBU. NEB SCH ×4 (07:10→20:00)
[2017-05-09] MEDS: VERAPAMIL SR 120 MG TABLET.ER. PO SCH (08:58)
[2017-05-09] MEDS: LISINOPRIL 10 MG TABLET PO SCH (08:59)
[2017-05-09] MEDS: ENOXAPARIN 30 MG/0.3 ML SYRINGE. SQ SCH (09:00)
[2017-05-09 11:00] VITALS: BP 112/43
[2017-05-09] MEDS: VANCOMYCIN PER PHARMACY MC PRN (11:57)
--- NOTE | 2017-05-09 12:21 | PDOC ---
PULMONARY PROGRESS NOTES Subjective feels better Vitals Vital Signs Date Time Temp Pulse Resp B/P (MAP) Pulse Ox O2 Delivery O2 Flow Rate FiO2 05/09/17 11:05 Nasal Cannula 3.0 05/09/17 11:00 98.1 70 16 112/43 (66) 98 98.1 General: Alert, No acute distress Lungs: Other (decrease bases) Cardiovascular: S1 Abdomen: Soft Neuro Exam: Alert Extremities: No Edema Skin: Warm Labs Laboratory Tests Test 05/08/17 04:18 05/09/17 04:50 White Blood Count 9.3 x10^3/uL (4.0-11.0) 11.5 x10^3/uL (4.0-11.0) Red Blood Count 3.23 x10^6/uL (4.30-5.70) 2.87 x10^6/uL (4.30-5.70) Hemoglobin 9.9 g/dL (13.0-17.5) 8.6 g/dL (13.0-17.5) Hematocrit 29.0 % (39.0-53.0) 25.7 % (39.0-53.0) Mean Corpuscular Volume 90 fL (79-100) 90 fL (79-100) Mean Corpuscular Hemoglobin 31 pg (25-35) 30 pg (25-35) Mean Corpuscular Hemoglobin Concent 34 g/dL (31-37) 34 g/dL (31-37) Red Cell Distribution Width 13.3 % (11.5-14.5) 13.1 % (11.5-14.5) Platelet Count 157 x10^3/uL (140-400) 172 x10^3/uL (140-400) Neutrophils (%) (Auto) 93 % (31-73) Lymphocytes (%) (Auto) 4 % (24-48) Monocytes (%) (Auto) 3 % (0-9) Eosinophils (%) (Auto) 0 % (0-3) Basophils (%) (Auto) 0 % (0-3) Neutrophils # (Auto) 8.6 x10^3uL (1.8-7.7) Lymphocytes # (Auto) 0.4 x10^3/uL (1.0-4.8) Monocytes # (Auto) 0.2 x10^3/uL (0.0-1.1) Eosinophils # (Auto) 0.0 x10^3/uL (0.0-0.7) Basophils # (Auto) 0.0 x10^3/uL (0.0-0.2) Sodium Level 136 mmol/L (136-145) 138 mmol/L (136-145) Potassium Level 5.3 mmol/L (3.5-5.1) 4.3 mmol/L (3.5-5.1) Chloride Level 101 mmol/L (98-107) 104 mmol/L (98-107) Carbon Dioxide Level 31 mmol/L (21-32) 32 mmol/L (21-32) Anion Gap 4 (6-14) 2 (6-14) Blood Urea Nitrogen 38 mg/dL (8-26) 34 mg/dL (8-26) Creatinine 2.1 mg/dL (0.7-1.3) 1.6 mg/dL (0.7-1.3) Estimated GFR (Cockcroft-Gault) 31.4 42.9 BUN/Creatinine Ratio 18 (6-20) Glucose Level 160 mg/dL (70-99) 113 mg/dL (70-99) Calcium Level 8.7 mg/dL (8.5-10.1) 8.6 mg/dL (8.5-10.1) Total Bilirubin 0.2 mg/dL (0.2-1.0) Aspartate Amino Transf (AST/SGOT) 12 U/L (15-37) Alanine Aminotransferase (ALT/SGPT) 26 U/L (16-63) Alkaline Phosphatase 57 U/L (46-116) Total Protein 7.1 g/dL (6.4-8.2) Albumin 2.7 g/dL (3.4-5.0) Albumin/Globulin Ratio 0.6 (1.0-1.7) Laboratory Tests Test 05/09/17 04:50 White Blood Count 11.5 x10^3/uL (4.0-11.0) Red Blood Count 2.87 x10^6/uL (4.30-5.70) Hemoglobin 8.6 g/dL (13.0-17.5) Hematocrit 25.7 % (39.0-53.0) Mean Corpuscular Volume 90 fL (79-100) Mean Corpuscular Hemoglobin 30 pg (25-35) Mean Corpuscular Hemoglobin Concent 34 g/dL (31-37) Red Cell Distribution Width 13.1 % (11.5-14.5) Platelet Count 172 x10^3/uL (140-400) Sodium Level 138 mmol/L (136-145) Potassium Level 4.3 mmol/L (3.5-5.1) Chloride Level 104 mmol/L (98-107) Carbon Dioxide Level 32 mmol/L (21-32) Anion Gap 2 (6-14) Blood Urea Nitrogen 34 mg/dL (8-26) Creatinine 1.6 mg/dL (0.7-1.3) Estimated GFR (Cockcroft-Gault) 42.9 Glucose Level 113 mg/dL (70-99) Calcium Level 8.6 mg/dL (8.5-10.1) Medications Active Scripts Medications Dose Route/Sig Max Daily Dose Days Date Category [Ambivent Respimat] PO DAILY 05/07/17 Reported Prednisone 10 Mg Tablet 10 Mg PO DAILY 05/07/17 Reported Klor-Con 10 (Potassium Chloride) 10 Meq Tablet.er 10 Meq PO DAILY 08/26/16 Reported Lisinopril 10 Mg Tablet 10 Mg PO DAILY 08/26/16 Reported Lasix (Furosemide) 40 Mg Tablet 40 Mg PO DAILY 08/26/16 Reported Albuterol Sulfate Conc Neb Soln (Albuterol Sulfate) 2.5 Mg/0.5 Ml Vial.neb 1 Vial NEB Q6HRS 08/26/16 Reported Ventolin Hfa Inhaler (Albuterol Sulfate) 18 Gm Hfa.aer.ad 2 Puff INH QID 08/26/16 Reported Combivent Respimat Inhal (Ipratropium/Albuterol Sulfate) 4 Gm Aer.w.adap 2 Inh IH QID 08/26/16 Reported Verapamil Er (Verapamil Hcl) 120 Mg Cap24h.pel 120 Mg PO DAILY 08/26/16 Reported Impression . Suspected severe chronic obstructive pulmonary disease with chronic respiratory failure and extensive upper lobe bullous lung disease, now presents with increasing cough and mild exertional dyspnea. In fact, the cough has been chronic and is productive of milky sputum. He has no obvious weight loss. He does have a history of tuberculosis exposure in the 50s and at that time, his dad was treated for that condition. He has no chronic night sweats. The differential diagnoses would include: 1. Superimposed pneumonia involving the upper lobes in a patient who has severe underlying bullous lung disease. 2. Cannot exclude the possibilities of chronic infection such as Mycobacterium avium complex infection. 3. Clinically, less likely Mycobacterium tuberculosis. 4. Underlying severe chronic obstructive pulmonary disease with extensive bullous lung disease. Plan . 1. CT chest reviewed. He has mild new parenchymal infiltrates in upper lobes c /w new inflammatory process 2. sputum growing gram neg rods/ gram positive cocci 3. added vanc, continue levaquin. If PSA grows, will add Zosyn, follow final cultures 4. Continue present oxygen. 5. Continue bronchodilators. 6. d/w pts brother. no need for bronchoscopy at present.. BELTRAN BARRIOS MD May 09, 2017 12:21
--- NOTE | 2017-05-09 13:05 | PDOC ---
PROGRESS NOTES Subjective Subjective Patient continues to improve with IV antibiotics and pulmonary toilet. Patient slowly progressing with PT and OT modalities. Sputum culture still pending. Objective Objective Vital Signs Date Time Temp Pulse Resp B/P (MAP) Pulse Ox O2 Delivery O2 Flow Rate FiO2 05/09/17 11:05 Nasal Cannula 3.0 05/09/17 11:00 98.1 70 16 112/43 (66) 98 98.1 Intake and Output 05/10/17 07:00 Intake Total 280 ml Balance 280 ml Intake Oral 280 ml Physical Exam Abdomen: Normal bowel sounds Heart: Regular rate Extremities: No edema General: Alert Lungs: Clear to auscultation Assessment Assessment Problems Medical Problems: (1) Acute renal failure Status: Acute (2) Community acquired pneumonia Status: Acute (3) COPD with acute exacerbation Status: Acute Community-acquired pneumonia Acute on chronic respiratory failure. Exacerbation of chronic obstructive pulmonary disease. Acute on chronic renal failure with baseline creatinine of 1.2, current creatinine of 2.9. Peripheral vascular disease. Hypertension. Plan Plan of Care Continue PT and OT modalities. Change to by mouth antibiotics when stable per pulmonary medicine Discharge to home with ongoing oxygen and breathing treatment therapies Comment Review of Relevant I have reviewed the following items delmer (where applicable) has been applied. Labs Laboratory Tests Test 05/08/17 04:18 05/09/17 04:50 White Blood Count 9.3 x10^3/uL (4.0-11.0) 11.5 x10^3/uL (4.0-11.0) Red Blood Count 3.23 x10^6/uL (4.30-5.70) 2.87 x10^6/uL (4.30-5.70) Hemoglobin 9.9 g/dL (13.0-17.5) 8.6 g/dL (13.0-17.5) Hematocrit 29.0 % (39.0-53.0) 25.7 % (39.0-53.0) Mean Corpuscular Volume 90 fL (79-100) 90 fL (79-100) Mean Corpuscular Hemoglobin 31 pg (25-35) 30 pg (25-35) Mean Corpuscular Hemoglobin Concent 34 g/dL (31-37) 34 g/dL (31-37) Red Cell Distribution Width 13.3 % (11.5-14.5) 13.1 % (11.5-14.5) Platelet Count 157 x10^3/uL (140-400) 172 x10^3/uL (140-400) Neutrophils (%) (Auto) 93 % (31-73) Lymphocytes (%) (Auto) 4 % (24-48) Monocytes (%) (Auto) 3 % (0-9) Eosinophils (%) (Auto) 0 % (0-3) Basophils (%) (Auto) 0 % (0-3) Neutrophils # (Auto) 8.6 x10^3uL (1.8-7.7) Lymphocytes # (Auto) 0.4 x10^3/uL (1.0-4.8) Monocytes # (Auto) 0.2 x10^3/uL (0.0-1.1) Eosinophils # (Auto) 0.0 x10^3/uL (0.0-0.7) Basophils # (Auto) 0.0 x10^3/uL (0.0-0.2) Sodium Level 136 mmol/L (136-145) 138 mmol/L (136-145) Potassium Level 5.3 mmol/L (3.5-5.1) 4.3 mmol/L (3.5-5.1) Chloride Level 101 mmol/L (98-107) 104 mmol/L (98-107) Carbon Dioxide Level 31 mmol/L (21-32) 32 mmol/L (21-32) Anion Gap 4 (6-14) 2 (6-14) Blood Urea Nitrogen 38 mg/dL (8-26) 34 mg/dL (8-26) Creatinine 2.1 mg/dL (0.7-1.3) 1.6 mg/dL (0.7-1.3) Estimated GFR (Cockcroft-Gault) 31.4 42.9 BUN/Creatinine Ratio 18 (6-20) Glucose Level 160 mg/dL (70-99) 113 mg/dL (70-99) Calcium Level 8.7 mg/dL (8.5-10.1) 8.6 mg/dL (8.5-10.1) Total Bilirubin 0.2 mg/dL (0.2-1.0) Aspartate Amino Transf (AST/SGOT) 12 U/L (15-37) Alanine Aminotransferase (ALT/SGPT) 26 U/L (16-63) Alkaline Phosphatase 57 U/L (46-116) Total Protein 7.1 g/dL (6.4-8.2) Albumin 2.7 g/dL (3.4-5.0) Albumin/Globulin Ratio 0.6 (1.0-1.7) Laboratory Tests Test 05/09/17 04:50 White Blood Count 11.5 x10^3/uL (4.0-11.0) Red Blood Count 2.87 x10^6/uL (4.30-5.70) Hemoglobin 8.6 g/dL (13.0-17.5) Hematocrit 25.7 % (39.0-53.0) Mean Corpuscular Volume 90 fL (79-100) Mean Corpuscular Hemoglobin 30 pg (25-35) Mean Corpuscular Hemoglobin Concent 34 g/dL (31-37) Red Cell Distribution Width 13.1 % (11.5-14.5) Platelet Count 172 x10^3/uL (140-400) Sodium Level 138 mmol/L (136-145) Potassium Level 4.3 mmol/L (3.5-5.1) Chloride Level 104 mmol/L (98-107) Carbon Dioxide Level 32 mmol/L (21-32) Anion Gap 2 (6-14) Blood Urea Nitrogen 34 mg/dL (8-26) Creatinine 1.6 mg/dL (0.7-1.3) Estimated GFR (Cockcroft-Gault) 42.9 Glucose Level 113 mg/dL (70-99) Calcium Level 8.6 mg/dL (8.5-10.1) Microbiology 05/07/17 Blood Culture - Preliminary, Resulted NO GROWTH AFTER 2 DAYS 05/07/17 - Final, Resulted 05/07/17 - Final, Resulted 05/07/17 - Final, Resulted 05/07/17 - Final, Resulted 05/07/17 Gram Stain Evaluation - Final, Resulted 05/07/17 Sputum Culture - Preliminary, Resulted 05/07/17 Sputum Result 1 - Final, Resulted Medications Current Medications Albuterol/ Ipratropium (Duoneb) 6 ml 1X ONCE NEB Last administered on t 10:29; Start 05/07/17 at 10:15; Stop 05/07/17 at 10:18; Status DC Methylprednisolone Sodium Succinate (SOLU-Medrol 125MG VIAL) 125 mg 1X ONCE IV Last administered on 05/07/17 10:38; Start 05/07/17 at 10:15; Stop 05/07/17 at 10:18; Status DC Albuterol Sulfate (Ventolin Neb Soln) 5 mg 1X ONCE NEB Last administered on 11:17; Start 05/07/17 at 11:15; Stop 05/07/17 at 11:16; Status DC Levofloxacin/ Dextrose (Levaquin Per Pharmacy) 1 each PRN DAILY PRN MC SEE COMMENTS; Start 05/07/17 at 11:45; Status UNV Levofloxacin/ Dextrose (Levaquin Per Pharmacy) 1 each PRN DAILY PRN MC SEE COMMENTS; Start 05/07/17 at 11:45 Levofloxacin/ Dextrose 150 ml @ 100 mls/hr Q48H IV Last administered on 12:04; Start 05/07/17 at 12:00 Ondansetron HCl (Zofran) 4 mg PRN Q8HRS PRN IV NAUSEA/VOMITING; Start 05/07/17 at 11:45; Stop 05/08/17 at 11:44; Status DC Sodium Chloride 1,000 ml @ 150 mls/hr Q6H40M IV ; Start 05/07/17 at 11:42; Stop 05/08/17 at 11:41; Status DC Acetaminophen (Tylenol) 650 mg PRN Q4HRS PRN PO FEVER; Start 05/07/17 at 11:45 ; Stop 05/08/17 at 11:44; Status DC Albuterol/ Ipratropium (Duoneb) 3 ml RTQID NEB Last administered on 05/08/17 15:39; Start 05/07/17 at 12:00; Stop 05/08/17 at 11:59; Status DC Lisinopril (Prinivil) 10 mg DAILY PO Last administered on 05/09/17 08:59; Start 05/07/17 at 13:00 Non-Formulary Medication 2 puff QID INH ; Start 05/07/17 at 13:00; Status UNV Non-Formulary Medication 2 inh QID IH ; Start 05/07/17 at 13:00; Status UNV Verapamil HCl (Calan Sr) 120 mg DAILY PO Last administered on 05/09/17 08:58; Start 05/07/17 at 13:00 Sodium Chloride 1,000 ml @ 100 mls/hr Q10H IV Last administered on 05/07/17 15:15; Start 05/07/17 at 12:35; Stop 05/07/17 at 22:34; Status DC Enoxaparin Sodium (Lovenox 40mg Syringe) 40 mg Q24H SQ Last administered on 15:15; Start 05/07/17 at 12:45; Stop 05/07/17 at 16:24; Status DC Enoxaparin Sodium (Lovenox 30mg Syringe) 30 mg Q24H SQ Last administered on 08:48; Start 05/08/17 at 09:00; Stop 05/09/17 at 11:41; Status DC Vancomycin HCl (Vanco Per Pharmacy) 1 each PRN DAILY PRN MC SEE COMMENTS Last administered on 05/09/17 11:57; Start 05/08/17 at 12:15 Vancomycin HCl 1.75 gm/Sodium Chloride 500 ml @ 250 mls/hr 1X ONCE IV Last administered on 05/08/17 13:04; Start 05/08/17 at 12:30; Stop 05/08/17 at 14:29 ; Status DC Vancomycin HCl 1 gm/Sodium Chloride 250 ml @ 250 mls/hr Q12H IV ; Start at 13:00 Vancomycin HCl 1 each 1X ONCE MC ; Start 05/10/17 at 12:30; Stop 05/10/17 at 12 :31 Albuterol Sulfate (Ventolin Neb Soln) 2.5 mg RTQID NEB Last administered on 11:04; Start 05/08/17 at 20:00 Enoxaparin Sodium (Lovenox 40mg Syringe) 40 mg Q24H SQ ; Start 05/10/17 at 09:00 Active Scripts Active Reported [Ambivent Respimat] PO DAILY Prednisone 10 Mg Tablet 10 Mg PO DAILY Klor-Con 10 (Potassium Chloride) 10 Meq Tablet.er 10 Meq PO DAILY Lisinopril 10 Mg Tablet 10 Mg PO DAILY Lasix (Furosemide) 40 Mg Tablet 40 Mg PO DAILY Albuterol Sulfate Conc Neb Soln (Albuterol Sulfate) 2.5 Mg/0.5 Ml Vial.neb 1 Vial NEB Q6HRS Ventolin Hfa Inhaler (Albuterol Sulfate) 18 Gm Hfa.aer.ad 2 Puff INH QID Combivent Respimat Inhal (Ipratropium/Albuterol Sulfate) 4 Gm Aer.w.adap 2 Inh IH QID Verapamil Er (Verapamil Hcl) 120 Mg Cap24h.pel 120 Mg PO DAILY Vitals/I & O Vital Sign - Last 24 Hours 05/08/17 05/08/17 05/08/17 05/08/17 15:00 15:39 19:00 19:40 Temp 97.7 96.1 97.7 96.1 Pulse 60 58 Resp 18 18 B/P (MAP) 104/40 (61) 111/39 (63) Pulse Ox 98 99 100 O2 Delivery Nasal Cannula Nasal Cannula Nasal Cannula Nasal Cannula O2 Flow Rate 3.0 3.0 3.0 3.0 05/08/17 05/08/17 05/09/17 05/09/17 20:00 23:00 03:00 07:00 Temp 97.5 96.4 97.4 97.5 96.4 97.4 Pulse 65 60 59 Resp 18 18 16 B/P (MAP) 116/47 (70) 117/59 (78) 138/51 (80) Pulse Ox 99 100 100 O2 Delivery Nasal Cannula Nasal Cannula Nasal Cannula Nasal Cannula O2 Flow Rate 3.0 3.0 3.0 3.0 05/09/17 05/09/17 05/09/17 05/09/17 07:12 08:00 08:58 08:59 Pulse 60 60 B/P (MAP) 138/51 138/51 Pulse Ox 100 O2 Delivery Nasal Cannula Nasal Cannula O2 Flow Rate 3.5 3.0 05/09/17 05/09/17 11:00 11:05 Temp 98.1 98.1 Pulse 70 Resp 16 B/P (MAP) 112/43 (66) Pulse Ox 98 O2 Delivery Nasal Cannula Nasal Cannula O2 Flow Rate 3.0 3.0 Intake and Output 05/09/17 05/09/17 05/10/17 15:00 23:00 07:00 Intake Total 280 ml Balance 280 ml MATT PAYTON MD May 09, 2017 13:05
[2017-05-09 15:00] VITALS: BP 126/47
[2017-05-09] MEDS: VANCOMYCIN 1 GM in IV NORMAL SALINE 250ML 250 ML IV SCH (16:46)
[2017-05-09 19:34] VITALS: BP 151/57
[2017-05-09 22:32] VITALS: BP 111/53
[2017-05-10] MEDS: VANCOMYCIN 1 GM in IV NORMAL SALINE 250ML 250 ML IV SCH ×2 (00:26→21:47)
[2017-05-10 02:45] VITALS: BP 128/62
[2017-05-10 07:30] VITALS: BP 132/51
[2017-05-10] MEDS: ALBUTEROL SULFATE 2.5 MG/3 ML NEBU. NEB SCH ×4 (07:51→19:43)
[2017-05-10] MEDS: VERAPAMIL SR 120 MG TABLET.ER. PO SCH (08:20)
[2017-05-10] MEDS: LISINOPRIL 10 MG TABLET PO SCH (08:21)
[2017-05-10] MEDS: ENOXAPARIN 40 MG/0.4 ML SYRINGE. SQ SCH (08:21)
[2017-05-10] MEDS ORDERED: LEVO500T59 PO (08:34)
--- NOTE | 2017-05-10 08:43 | PDOC ---
PROGRESS NOTES Subjective Subjective Patient feeling better. Hgb down from admit and previous baseline of 12. Objective Objective Vital Signs Date Time Temp Pulse Resp B/P (MAP) Pulse Ox O2 Delivery O2 Flow Rate FiO2 05/10/17 08:21 63 132/51 05/10/17 07:51 99 Nasal Cannula 2.5 05/10/17 02:45 97.6 20 97.6 Physical Exam Abdomen: Normal bowel sounds Heart: No murmurs Extremities: Other (1 +) General: Alert Lungs: Clear to auscultation Assessment Assessment Problems Medical Problems: (1) Acute renal failure Status: Acute (2) Community acquired pneumonia Status: Acute (3) COPD with acute exacerbation Status: Acute Community-acquired pneumonia Anemia of unknown etiology Acute on chronic respiratory failure. Exacerbation of chronic obstructive pulmonary disease. Acute on chronic renal failure with baseline creatinine of 1.2, current creatinine of 2.9. Peripheral vascular disease. Hypertension. Plan Plan of Care Heme test stools Consult GI Recheck CBC Recheck BMP Change to PO antibx D/C vanco when ok with Pulm med Comment Review of Relevant I have reviewed the following items delmer (where applicable) has been applied. Labs Laboratory Tests Test 05/09/17 04:50 White Blood Count 11.5 x10^3/uL (4.0-11.0) Red Blood Count 2.87 x10^6/uL (4.30-5.70) Hemoglobin 8.6 g/dL (13.0-17.5) Hematocrit 25.7 % (39.0-53.0) Mean Corpuscular Volume 90 fL (79-100) Mean Corpuscular Hemoglobin 30 pg (25-35) Mean Corpuscular Hemoglobin Concent 34 g/dL (31-37) Red Cell Distribution Width 13.1 % (11.5-14.5) Platelet Count 172 x10^3/uL (140-400) Sodium Level 138 mmol/L (136-145) Potassium Level 4.3 mmol/L (3.5-5.1) Chloride Level 104 mmol/L (98-107) Carbon Dioxide Level 32 mmol/L (21-32) Anion Gap 2 (6-14) Blood Urea Nitrogen 34 mg/dL (8-26) Creatinine 1.6 mg/dL (0.7-1.3) Estimated GFR (Cockcroft-Gault) 42.9 Glucose Level 113 mg/dL (70-99) Calcium Level 8.6 mg/dL (8.5-10.1) Microbiology 05/07/17 Blood Culture - Preliminary, Resulted NO GROWTH AFTER 2 DAYS 05/07/17 - Final, Complete 05/07/17 - Final, Complete 05/07/17 - Final, Complete 05/07/17 - Final, Complete 05/07/17 Gram Stain Evaluation - Final, Complete 05/07/17 Sputum Culture - Final, Complete 05/07/17 Sputum Result 1 - Final, Complete Medications Current Medications Albuterol/ Ipratropium (Duoneb) 6 ml 1X ONCE NEB Last administered on 10:29; Start 05/07/17 at 10:15; Stop 05/07/17 at 10:18; Status DC Methylprednisolone Sodium Succinate (SOLU-Medrol 125MG VIAL) 125 mg 1X ONCE IV Last administered on 05/07/17 10:38; Start 05/07/17 at 10:15; Stop 05/07/17 at 10:18; Status DC Albuterol Sulfate (Ventolin Neb Soln) 5 mg 1X ONCE NEB Last administered on 11:17; Start 05/07/17 at 11:15; Stop 05/07/17 at 11:16; Status DC Levofloxacin/ Dextrose (Levaquin Per Pharmacy) 1 each PRN DAILY PRN MC SEE COMMENTS; Start 05/07/17 at 11:45; Status UNV Levofloxacin/ Dextrose (Levaquin Per Pharmacy) 1 each PRN DAILY PRN MC SEE COMMENTS; Start 05/07/17 at 11:45 Levofloxacin/ Dextrose 150 ml @ 100 mls/hr Q48H IV Last administered on 12:04; Start 05/07/17 at 12:00; Stop 05/10/17 at 08:36; Status DC Ondansetron HCl (Zofran) 4 mg PRN Q8HRS PRN IV NAUSEA/VOMITING; Start 05/07/17 at 11:45; Stop 05/08/17 at 11:44; Status DC Sodium Chloride 1,000 ml @ 150 mls/hr Q6H40M IV ; Start 05/07/17 at 11:42; Stop 05/08/17 at 11:41; Status DC Acetaminophen (Tylenol) 650 mg PRN Q4HRS PRN PO FEVER; Start 05/07/17 at 11:45 ; Stop 05/08/17 at 11:44; Status DC Albuterol/ Ipratropium (Duoneb) 3 ml RTQID NEB Last administered on 05/08/17 15:39; Start 05/07/17 at 12:00; Stop 05/08/17 at 11:59; Status DC Lisinopril (Prinivil) 10 mg DAILY PO Last administered on 05/10/17 08:21; Start 05/07/17 at 13:00 Non-Formulary Medication 2 puff QID INH ; Start 05/07/17 at 13:00; Status UNV Non-Formulary Medication 2 inh QID IH ; Start 05/07/17 at 13:00; Status UNV Verapamil HCl (Calan Sr) 120 mg DAILY PO Last administered on 05/10/17 08:20; Start 05/07/17 at 13:00 Sodium Chloride 1,000 ml @ 100 mls/hr Q10H IV Last administered on 05/07/17 15:15; Start 05/07/17 at 12:35; Stop 05/07/17 at 22:34; Status DC Enoxaparin Sodium (Lovenox 40mg Syringe) 40 mg Q24H SQ Last administered on 15:15; Start 05/07/17 at 12:45; Stop 05/07/17 at 16:24; Status DC Enoxaparin Sodium (Lovenox 30mg Syringe) 30 mg Q24H SQ Last administered on 08:48; Start 05/08/17 at 09:00; Stop 05/09/17 at 11:41; Status DC Vancomycin HCl (Vanco Per Pharmacy) 1 each PRN DAILY PRN MC SEE COMMENTS Last administered on 05/09/17 11:57; Start 05/08/17 at 12:15 Vancomycin HCl 1.75 gm/Sodium Chloride 500 ml @ 250 mls/hr 1X ONCE IV Last administered on 05/08/17 13:04; Start 05/08/17 at 12:30; Stop 05/08/17 at 14:29 ; Status DC Vancomycin HCl 1 gm/Sodium Chloride 250 ml @ 250 mls/hr Q12H IV Last administered on 05/10/17 00:26; Start 05/09/17 at 13:00 Vancomycin HCl 1 each 1X ONCE MC ; Start 05/10/17 at 12:30; Stop 05/10/17 at 12 :31 Albuterol Sulfate (Ventolin Neb Soln) 2.5 mg RTQID NEB Last administered on 07:51; Start 05/08/17 at 20:00 Enoxaparin Sodium (Lovenox 40mg Syringe) 40 mg Q24H SQ Last administered on 08:21; Start 05/10/17 at 09:00 Levofloxacin (Levaquin) 500 mg DAILY06 PO ; Start 05/11/17 at 06:00; Status UNV Active Scripts Active Levaquin (Levofloxacin) 500 Mg Tablet 1 Tab PO DAILY Reported [Ambivent Respimat] PO DAILY Prednisone 10 Mg Tablet 10 Mg PO DAILY Klor-Con 10 (Potassium Chloride) 10 Meq Tablet.er 10 Meq PO DAILY Lisinopril 10 Mg Tablet 10 Mg PO DAILY Lasix (Furosemide) 40 Mg Tablet 40 Mg PO DAILY Albuterol Sulfate Conc Neb Soln (Albuterol Sulfate) 2.5 Mg/0.5 Ml Vial.neb 1 Vial NEB Q6HRS Ventolin Hfa Inhaler (Albuterol Sulfate) 18 Gm Hfa.aer.ad 2 Puff INH QID Combivent Respimat Inhal (Ipratropium/Albuterol Sulfate) 4 Gm Aer.w.adap 2 Inh IH QID Verapamil Er (Verapamil Hcl) 120 Mg Cap24h.pel 120 Mg PO DAILY Vitals/I & O Vital Sign - Last 24 Hours 05/09/17 05/09/17 05/09/17 05/09/17 08:58 08:59 11:00 11:05 Temp 98.1 98.1 Pulse 60 60 70 Resp 16 B/P (MAP) 138/51 138/51 112/43 (66) Pulse Ox 98 O2 Delivery Nasal Cannula Nasal Cannula O2 Flow Rate 3.0 3.0 05/09/17 05/09/17 05/09/17 05/09/17 15:00 15:02 19:34 19:36 Temp 96.8 97.5 96.8 97.5 Pulse 60 77 Resp 16 20 B/P (MAP) 126/47 (73) 151/57 (88) Pulse Ox 99 95 O2 Delivery Nasal Cannula Nasal Cannula Nasal Cannula Nasal Cannula O2 Flow Rate 3.0 3.0 3.0 3.0 05/09/17 05/09/17 05/10/17 05/10/17 20:01 22:32 02:45 07:51 Temp 98.4 97.6 98.4 97.6 Pulse 61 63 Resp 20 20 B/P (MAP) 111/53 (72) 128/62 (84) Pulse Ox 99 100 99 O2 Delivery Nasal Cannula Nasal Cannula Nasal Cannula Nasal Cannula O2 Flow Rate 3.0 3.0 3.0 2.5 05/10/17 05/10/17 08:20 08:21 Pulse 63 63 B/P (MAP) 132/51 132/51 MATT PAYTON MD May 10, 2017 08:43
[2017-05-10] MEDS: VANCOMYCIN PER PHARMACY MC PRN (10:03)
[2017-05-10 10:30] VITALS: BP 129/54
[2017-05-10 12:25] LABS: NEG OBC FOB NEG; POS OBC FOB POS
[2017-05-10 12:46] LABS: CREATININE 1.4 mg/dL (0.7-1.3); GFR 50.1; POTASSIUM 4.5 mmol/L (3.5-5.1)
[2017-05-10 12:51] LABS: HEMATOCRIT 33.5 % (39.0-53.0); HEMOGLOBIN 11.3 g/dL (13.0-17.5); RED BLOOD COUNT 3.69 x10^6/uL (4.30-5.70); RED CELL DISTRIBUTION WIDTH 13.2 % (11.5-14.5); WHITE BLOOD COUNT 7.8 x10^3/uL (4.0-11.0)
[2017-05-10 14:40] VITALS: BP 111/54
--- NOTE | 2017-05-10 17:00 | PDOC ---
PULMONARY PROGRESS NOTES Subjective NOT MORE SOA Vitals Vital Signs Date Time Temp Pulse Resp B/P (MAP) Pulse Ox O2 Delivery O2 Flow Rate FiO2 05/10/17 15:57 98 Nasal Cannula 2.5 05/10/17 14:40 98.1 67 20 111/54 (73) 98.1 General: Alert, No acute distress Lungs: Crackles, Other (decrease bases) Cardiovascular: S1 Abdomen: Soft Neuro Exam: Alert Extremities: No Edema Skin: Warm Labs Laboratory Tests Test 05/09/17 04:50 05/10/17 10:55 05/10/17 12:30 White Blood Count 11.5 x10^3/uL (4.0-11.0) 7.8 x10^3/uL (4.0-11.0) Red Blood Count 2.87 x10^6/uL (4.30-5.70) 3.69 x10^6/uL (4.30-5.70) Hemoglobin 8.6 g/dL (13.0-17.5) 11.3 g/dL (13.0-17.5) Hematocrit 25.7 % (39.0-53.0) 33.5 % (39.0-53.0) Mean Corpuscular Volume 90 fL (79-100) 91 fL (79-100) Mean Corpuscular Hemoglobin 30 pg (25-35) 31 pg (25-35) Mean Corpuscular Hemoglobin Concent 34 g/dL (31-37) 34 g/dL (31-37) Red Cell Distribution Width 13.1 % (11.5-14.5) 13.2 % (11.5-14.5) Platelet Count 172 x10^3/uL (140-400) 190 x10^3/uL (140-400) Sodium Level 138 mmol/L (136-145) 140 mmol/L (136-145) Potassium Level 4.3 mmol/L (3.5-5.1) 4.5 mmol/L (3.5-5.1) Chloride Level 104 mmol/L (98-107) 103 mmol/L (98-107) Carbon Dioxide Level 32 mmol/L (21-32) 33 mmol/L (21-32) Anion Gap 2 (6-14) 4 (6-14) Blood Urea Nitrogen 34 mg/dL (8-26) 17 mg/dL (8-26) Creatinine 1.6 mg/dL (0.7-1.3) 1.4 mg/dL (0.7-1.3) Estimated GFR (Cockcroft-Gault) 42.9 50.1 Glucose Level 113 mg/dL (70-99) 91 mg/dL (70-99) Calcium Level 8.6 mg/dL (8.5-10.1) 9.0 mg/dL (8.5-10.1) Stool Occult Blood Negative (NEG) Laboratory Tests Test 05/10/17 10:55 05/10/17 12:30 Stool Occult Blood Negative (NEG) White Blood Count 7.8 x10^3/uL (4.0-11.0) Red Blood Count 3.69 x10^6/uL (4.30-5.70) Hemoglobin 11.3 g/dL (13.0-17.5) Hematocrit 33.5 % (39.0-53.0) Mean Corpuscular Volume 91 fL (79-100) Mean Corpuscular Hemoglobin 31 pg (25-35) Mean Corpuscular Hemoglobin Concent 34 g/dL (31-37) Red Cell Distribution Width 13.2 % (11.5-14.5) Platelet Count 190 x10^3/uL (140-400) Sodium Level 140 mmol/L (136-145) Potassium Level 4.5 mmol/L (3.5-5.1) Chloride Level 103 mmol/L (98-107) Carbon Dioxide Level 33 mmol/L (21-32) Anion Gap 4 (6-14) Blood Urea Nitrogen 17 mg/dL (8-26) Creatinine 1.4 mg/dL (0.7-1.3) Estimated GFR (Cockcroft-Gault) 50.1 Glucose Level 91 mg/dL (70-99) Calcium Level 9.0 mg/dL (8.5-10.1) Medications Active Scripts Medications Dose Route/Sig Max Daily Dose Days Date Category [Ambivent Respimat] PO DAILY 05/07/17 Reported Prednisone 10 Mg Tablet 10 Mg PO DAILY 05/07/17 Reported Klor-Con 10 (Potassium Chloride) 10 Meq Tablet.er 10 Meq PO DAILY 08/26/16 Reported Lisinopril 10 Mg Tablet 10 Mg PO DAILY 08/26/16 Reported Lasix (Furosemide) 40 Mg Tablet 40 Mg PO DAILY 08/26/16 Reported Albuterol Sulfate Conc Neb Soln (Albuterol Sulfate) 2.5 Mg/0.5 Ml Vial.neb 1 Vial NEB Q6HRS 08/26/16 Reported Ventolin Hfa Inhaler (Albuterol Sulfate) 18 Gm Hfa.aer.ad 2 Puff INH QID 08/26/16 Reported Combivent Respimat Inhal (Ipratropium/Albuterol Sulfate) 4 Gm Aer.w.adap 2 Inh IH QID 08/26/16 Reported Verapamil Er (Verapamil Hcl) 120 Mg Cap24h.pel 120 Mg PO DAILY 08/26/16 Reported Impression . AECOPD GRAM NEG PNEUMONIA ABNORMAL CXR RUL/JEFRY INFILTRATE 1. Severe emphysema changes. 2. New Ill-defined opacities in the right upper lobe and left upper lobe as described above may represent confluent fibrosis. However, lung malignancy is not ruled out. Short-term follow-up in 3 months and/or PET/CT recommended. 3. Stable thickening of the bilateral apical pleura. Plan . CONTINUE ANITBX VANCO AND LEVAQUIN FOLLOW SPUTUM CULTURE REPEAT CT IN 6-8 WEEKS NO NEED FOR BRONCH AT THIS TIME MICAELA TORRES MD May 10, 2017 17:00
[2017-05-10 19:15] VITALS: BP 136/46
--- NOTE | 2017-05-10 20:13 | CONS ---
DATE OF CONSULTATION: 05/10/2017 REQUESTING PHYSICIAN: Dr. Rojo. PRIMARY CARE PHYSICIAN: Dr. Rojo. REASON FOR CONSULTATION: Anemia. HISTORY OF PRESENT ILLNESS: This is a 71-year-old gentleman, admitted on 05/07/2017 for shortness of breath and acute respiratory failure. At that time, his initial hemoglobin was 11.4. It has suddenly declined and on 05/09/2017 was 8.6. There was no CBC done today. He reports that he has had a colonoscopy 4 years ago that was unrevealing. He denies any EGD in the past. He is unaware of any blood in his stool or dark tarry stools. He has a daily bowel movement. He does have some upper abdominal discomfort, but otherwise his symptoms are unremarkable. He has undergone imaging including a CT of his chest. There were some punctate calcified foci in his spleen suggestive of granulomatous disease with some probable small gallstones. PAST MEDICAL HISTORY: 1. Chronic obstructive pulmonary disease. 2. Bullous lung disease. 3. Chronic respiratory failure. 4. No tuberculosis exposures. 5. Peripheral vascular disease. 6. Peripheral neuropathy. 7. Congestive heart failure. 8. Colonoscopy 4 years ago that was reportedly unrevealing. ALLERGIES: No known drug allergies. MEDICATIONS: 1. Vancomycin. 2. Levofloxacin. 3. Lovenox. 4. Albuterol. 5. Verapamil. 6. Lisinopril. 7. Levaquin. FAMILY HISTORY: 1. No colorectal cancer. His mother of congestive heart failure. 2. His father of complications of tuberculosis. 3. Brother with emphysema. 4. Sister with breast cancer with brain mets. SOCIAL HISTORY: Greater than [id number] history of smoking and quit 6 years ago. Denies alcohol or IV drug abuse. REVIEW OF SYSTEMS: A 13-point review of systems was done. It is significant for shortness of breath and cough as well as fatigue. He also admits to some upper abdominal discomfort. PHYSICAL EXAMINATION: VITAL SIGNS: Temperature is 96.1, blood pressure is 129/54, heart rate 63. GENERAL: He is an obese male, in no apparent distress. HEENT: He has poor dentition. CARDIOVASCULAR: S1, S2. LUNGS: Have decreased breath sounds bilaterally. ABDOMEN: Normoactive bowel sounds, soft, nontender, nondistended. EXTREMITIES: He does have some edema. NEUROLOGIC: He is awake, alert and oriented x 3. LABORATORY DATA: Sodium 138, potassium 4.3, BUN 34, creatinine 1.6. His liver function tests demonstrated a low AST on 05/08/2017 at 12, ALT normal 26, alk phos normal at 57, albumin of 2.7, total bilirubin 0.2. CBC: White blood cell count of 11.5 with hemoglobin of 8.6 and platelets are at 172. IMAGING STUDIES: CT of the chest demonstrated: 1. One calcified focus in his spleen suggesting granulomatous disease. 2. Probable small gallstones. 3. Emphysema. ASSESSMENT AND PLAN: 1. Anemia: This is a normocytic anemia. He denies any history of anemia or any black stools or tarry stools. He states he has a daily bowel movement and had a normal colonoscopy 4 years ago. At this time, I will check iron studies as well as B12 and folic acid. He does not seem to have any signs of bleeding; however, he was on prednisone on admission and if he was taking any nonsteroidal anti-inflammatory drugs at the time, he could potentially have an ulcer. Again, there are no current signs of bleeding. If any of his indices are low, consider adding either an H2 esa or proton pump inhibitor. 2. Upper abdominal pain: This is somewhat mild. 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 I will defer the evaluation for granulomatous disease to Pulmonary, especially given he has apparently history of tuberculosis exposure in his father. 3. Gallstones: This may be the reason he is having some upper abdominal pain. At this time, his liver function tests are normal. We will continue to monitor. Thank you for allowing me and Dr. Rodgers to participate in the care of this patient. LETICIA CABALLERO MD DR: NAKUL/james JOB#: [id number] / [id number] MATT Palacios MD, SCOTT MD
[2017-05-10] MEDS ORDERED: BISACODYL 10 MG SUPP.RECT. PR ONE (20:30)
[2017-05-10] MEDS ORDERED: ACETAMINOPHEN 325 MG TABLET. PO PRN (20:30)
[2017-05-10] MEDS ORDERED: POLYETHYLENE GLYCOL 3350 17 GM PACKET. PO ONE (20:45)
[2017-05-10 23:00] VITALS: BP 121/39
[2017-05-11 03:11] VITALS: BP 112/61
[2017-05-11 07:30] VITALS: BP 136/51
[2017-05-11] MEDS: VERAPAMIL SR 120 MG TABLET.ER. PO SCH (08:39)
[2017-05-11] MEDS: LISINOPRIL 10 MG TABLET PO SCH (08:40)
[2017-05-11] MEDS: POLYETHYLENE GLYCOL 3350 17 GM PACKET. PO SCH (08:40)
[2017-05-11] MEDS: ENOXAPARIN 40 MG/0.4 ML SYRINGE. SQ SCH (08:43)
[2017-05-11] MEDS: ALBUTEROL SULFATE 2.5 MG/3 ML NEBU. NEB SCH ×4 (08:54→19:58)
--- NOTE | 2017-05-11 09:40 | RAD ---
CT of the abdomen and pelvis without contrast, 05/11/2017: History: Mid abdominal pain Noncontrast scans were obtained as requested. There are emphysematous changes in the lung bases. There are scattered parenchymal opacities compatible with scars. A parenchymal calcification is present in the right base. A small amount of right-sided pleural fluid has developed since 05/07/2017. The unopacified liver is unremarkable. There is a small density along the posterior wall of the gallbladder compatible with a dependent gallstone or mural calcification. No pericholecystic edema is seen. The pancreas is unremarkable. The spleen is of normal size. No renal abnormality is detected. There is moderate aortoiliac calcific plaquing without evidence of aneurysm. No abdominal or pelvic adenopathy is seen. The prostate gland is at the upper limits of normal in size. The bowel loops are not dilated. No free air or free fluid is present in the abdomen or pelvis. IMPRESSION: 1. Probable cholelithiasis. 2. No acute abdominal or pelvic abnormality is detected. 3. New small right pleural effusion. PQRS Compliance Statement: One or more of the following individualized dose reduction techniques were utilized for this examination: 1. Automated exposure control 2. Adjustment of the mA and/or kV according to patient size 3. Use of iterative reconstruction technique
[2017-05-11] MEDS: VANCOMYCIN 1 GM in IV NORMAL SALINE 250ML 250 ML IV SCH ×2 (10:08→22:01)
[2017-05-11] MEDS: VANCOMYCIN PER PHARMACY MC PRN (10:22)
[2017-05-11 10:30] VITALS: BP 115/45
[2017-05-11] MEDS ORDERED: MAGNESIUM CITRATE 296 ML SOLUTION. PO ONE (11:45)
--- NOTE | 2017-05-11 11:47 | PDOC ---
PROGRESS NOTES Subjective Subjective Patient c/o of new on set abd pain yesterday. CT scan shows Gall stones, patient had small BM but still feels like he needs a BM. Patient Hgb improved suspect hydration change vs lab error. Heme stool test neg Objective Objective Vital Signs Date Time Temp Pulse Resp B/P (MAP) Pulse Ox O2 Delivery O2 Flow Rate FiO2 05/11/17 10:30 97.5 77 18 115/45 (68) 97 Nasal Cannula 3.0 97.5 Intake and Output 05/12/17 07:00 Intake Total 120 ml Balance 120 ml Intake Oral 120 ml # Voids 1 # Bowel Movements 1 Physical Exam Abdomen: Normal bowel sounds, Other (Mild tender RUQ no rebound) Heart: Regular rate Extremities: No edema General: Alert Lungs: Other (increased wheezes) Assessment Assessment Problems Medical Problems: (1) Acute renal failure Status: Acute (2) Community acquired pneumonia Status: Acute (3) COPD with acute exacerbation Status: Acute Abd pain-Gall stones Community-acquired pneumonia Anemia of unknown etiology Acute on chronic respiratory failure. Exacerbation of chronic obstructive pulmonary disease. Acute on chronic renal failure with baseline creatinine of 1.2, current creatinine of 2.9. Peripheral vascular disease. Hypertension. Plan Plan of Care Check GB sono Mag citrate Increase activity Still on IV vanco Comment Review of Relevant I have reviewed the following items delmer (where applicable) has been applied. Labs Laboratory Tests Test 05/10/17 10:55 05/10/17 12:30 05/11/17 09:00 Stool Occult Blood Negative (NEG) White Blood Count 7.8 x10^3/uL (4.0-11.0) Red Blood Count 3.69 x10^6/uL (4.30-5.70) Hemoglobin 11.3 g/dL (13.0-17.5) Hematocrit 33.5 % (39.0-53.0) Mean Corpuscular Volume 91 fL (79-100) Mean Corpuscular Hemoglobin 31 pg (25-35) Mean Corpuscular Hemoglobin Concent 34 g/dL (31-37) Red Cell Distribution Width 13.2 % (11.5-14.5) Platelet Count 190 x10^3/uL (140-400) Sodium Level 140 mmol/L (136-145) Potassium Level 4.5 mmol/L (3.5-5.1) Chloride Level 103 mmol/L (98-107) Carbon Dioxide Level 33 mmol/L (21-32) Anion Gap 4 (6-14) Blood Urea Nitrogen 17 mg/dL (8-26) Creatinine 1.4 mg/dL (0.7-1.3) Estimated GFR (Cockcroft-Gault) 50.1 Glucose Level 91 mg/dL (70-99) Calcium Level 9.0 mg/dL (8.5-10.1) Vancomycin Level Trough 19.3 mcg/mL (10.0-20.0) Vancomycin Last Dose Date 05/09/17 Vancomycin Last Dose Time 1300 Laboratory Tests Test 05/10/17 12:30 05/11/17 09:00 White Blood Count 7.8 x10^3/uL (4.0-11.0) Red Blood Count 3.69 x10^6/uL (4.30-5.70) Hemoglobin 11.3 g/dL (13.0-17.5) Hematocrit 33.5 % (39.0-53.0) Mean Corpuscular Volume 91 fL (79-100) Mean Corpuscular Hemoglobin 31 pg (25-35) Mean Corpuscular Hemoglobin Concent 34 g/dL (31-37) Red Cell Distribution Width 13.2 % (11.5-14.5) Platelet Count 190 x10^3/uL (140-400) Sodium Level 140 mmol/L (136-145) Potassium Level 4.5 mmol/L (3.5-5.1) Chloride Level 103 mmol/L (98-107) Carbon Dioxide Level 33 mmol/L (21-32) Anion Gap 4 (6-14) Blood Urea Nitrogen 17 mg/dL (8-26) Creatinine 1.4 mg/dL (0.7-1.3) Estimated GFR (Cockcroft-Gault) 50.1 Glucose Level 91 mg/dL (70-99) Calcium Level 9.0 mg/dL (8.5-10.1) Vancomycin Level Trough 19.3 mcg/mL (10.0-20.0) Vancomycin Last Dose Date 05/09/17 Vancomycin Last Dose Time 1300 Microbiology 05/07/17 Blood Culture - Preliminary, Resulted NO GROWTH AFTER 4 DAYS 05/07/17 - Final, Complete 05/07/17 - Final, Complete 05/07/17 - Final, Complete 05/07/17 - Final, Complete 05/07/17 Gram Stain Evaluation - Final, Complete 05/07/17 Sputum Culture - Final, Complete 05/07/17 Sputum Result 1 - Final, Complete Medications Current Medications Albuterol/ Ipratropium (Duoneb) 6 ml 1X ONCE NEB Last administered on 10:29; Start 05/07/17 at 10:15; Stop 05/07/17 at 10:18; Status DC Methylprednisolone Sodium Succinate (SOLU-Medrol 125MG VIAL) 125 mg 1X ONCE IV Last administered on 05/07/17 10:38; Start 05/07/17 at 10:15; Stop 05/07/17 at 10:18; Status DC Albuterol Sulfate (Ventolin Neb Soln) 5 mg 1X ONCE NEB Last administered on 11:17; Start 05/07/17 at 11:15; Stop 05/07/17 at 11:16; Status DC Levofloxacin/ Dextrose (Levaquin Per Pharmacy) 1 each PRN DAILY PRN MC SEE COMMENTS; Start 05/07/17 at 11:45; Status UNV Levofloxacin/ Dextrose (Levaquin Per Pharmacy) 1 each PRN DAILY PRN MC SEE COMMENTS; Start 05/07/17 at 11:45; Stop 05/11/17 at 10:15; Status DC Levofloxacin/ Dextrose 150 ml @ 100 mls/hr Q48H IV Last administered on 12:04; Start 05/07/17 at 12:00; Stop 05/10/17 at 08:36; Status DC Ondansetron HCl (Zofran) 4 mg PRN Q8HRS PRN IV NAUSEA/VOMITING; Start 05/07/17 at 11:45; Stop 05/08/17 at 11:44; Status DC Sodium Chloride 1,000 ml @ 150 mls/hr Q6H40M IV ; Start 05/07/17 at 11:42; Stop 05/08/17 at 11:41; Status DC Acetaminophen (Tylenol) 650 mg PRN Q4HRS PRN PO FEVER; Start 05/07/17 at 11:45 ; Stop 05/08/17 at 11:44; Status DC Albuterol/ Ipratropium (Duoneb) 3 ml RTQID NEB Last administered on 05/08/17 15:39; Start 05/07/17 at 12:00; Stop 05/08/17 at 11:59; Status DC Lisinopril (Prinivil) 10 mg DAILY PO Last administered on 05/11/17 08:40; Start 05/07/17 at 13:00 Non-Formulary Medication 2 puff QID INH ; Start 05/07/17 at 13:00; Status UNV Non-Formulary Medication 2 inh QID IH ; Start 05/07/17 at 13:00; Status UNV Verapamil HCl (Calan Sr) 120 mg DAILY PO Last administered on 05/11/17 08:39; Start 05/07/17 at 13:00 Sodium Chloride 1,000 ml @ 100 mls/hr Q10H IV Last administered on 05/07/17 15:15; Start 05/07/17 at 12:35; Stop 05/07/17 at 22:34; Status DC Enoxaparin Sodium (Lovenox 40mg Syringe) 40 mg Q24H SQ Last administered on 15:15; Start 05/07/17 at 12:45; Stop 05/07/17 at 16:24; Status DC Enoxaparin Sodium (Lovenox 30mg Syringe) 30 mg Q24H SQ Last administered on 08:48; Start 05/08/17 at 09:00; Stop 05/09/17 at 11:41; Status DC Vancomycin HCl (Vanco Per Pharmacy) 1 each PRN DAILY PRN MC SEE COMMENTS Last administered on 05/11/17 10:22; Start 05/08/17 at 12:15 Vancomycin HCl 1.75 gm/Sodium Chloride 500 ml @ 250 mls/hr 1X ONCE IV Last administered on 05/08/17 13:04; Start 05/08/17 at 12:30; Stop 05/08/17 at 14:29 ; Status DC Vancomycin HCl 1 gm/Sodium Chloride 250 ml @ 250 mls/hr Q12H IV Last administered on 05/10/17 00:26; Start 05/09/17 at 13:00; Stop 05/10/17 at 10:06 ; Status DC Vancomycin HCl 1 each 1X ONCE MC Last administered on 05/11/17 09:30; Start 05/11/17 at 09:30; Stop 05/11/17 at 09:31; Status DC Albuterol Sulfate (Ventolin Neb Soln) 2.5 mg RTQID NEB Last administered on 08:54; Start 05/08/17 at 20:00 Enoxaparin Sodium (Lovenox 40mg Syringe) 40 mg Q24H SQ Last administered on 08:43; Start 05/10/17 at 09:00 Levofloxacin (Levaquin) 500 mg DAILY06 PO Last administered on 05/11/17 08:39 ; Start 05/10/17 at 09:00 Vancomycin HCl 1 gm/Sodium Chloride 250 ml @ 250 mls/hr Q12H IV Last administered on 05/11/17 10:08; Start 05/10/17 at 22:00 Acetaminophen (Tylenol) 650 mg PRN Q4HRS PRN PO PAIN Last administered on 21:04; Start 05/10/17 at 20:30 Bisacodyl (Dulcolax Supp) 10 mg 1X ONCE PA Last administered on 05/10/17 21: 05; Start 05/10/17 at 20:30; Stop 05/10/17 at 20:34; Status DC Polyethylene Glycol (miraLAX PACKET) 17 gm DAILY PO Last administered on 08:40; Start 05/11/17 at 09:00 Polyethylene Glycol (miraLAX PACKET) 17 gm 1X ONCE PO Last administered on 21:05; Start 05/10/17 at 20:45; Stop 05/10/17 at 20:46; Status DC Active Scripts Active Levaquin (Levofloxacin) 500 Mg Tablet 1 Tab PO DAILY Reported [Ambivent Respimat] PO DAILY Prednisone 10 Mg Tablet 10 Mg PO DAILY Klor-Con 10 (Potassium Chloride) 10 Meq Tablet.er 10 Meq PO DAILY Lisinopril 10 Mg Tablet 10 Mg PO DAILY Lasix (Furosemide) 40 Mg Tablet 40 Mg PO DAILY Albuterol Sulfate Conc Neb Soln (Albuterol Sulfate) 2.5 Mg/0.5 Ml Vial.neb 1 Vial NEB Q6HRS Ventolin Hfa Inhaler (Albuterol Sulfate) 18 Gm Hfa.aer.ad 2 Puff INH QID Combivent Respimat Inhal (Ipratropium/Albuterol Sulfate) 4 Gm Aer.w.adap 2 Inh IH QID Verapamil Er (Verapamil Hcl) 120 Mg Cap24h.pel 120 Mg PO DAILY Vitals/I & O Vital Sign - Last 24 Hours 05/10/17 05/10/17 05/10/17 05/10/17 14:40 15:57 19:15 19:45 Temp 98.1 97.9 98.1 97.9 Pulse 67 66 Resp 20 18 B/P (MAP) 111/54 (73) 136/46 (76) Pulse Ox 100 98 97 98 O2 Delivery Nasal Cannula Nasal Cannula Nasal Cannula Nasal Cannula O2 Flow Rate 3.0 2.5 3.0 2.5 05/10/17 05/10/17 05/11/17 05/11/17 19:58 23:00 03:11 07:30 Temp 97.4 97.4 97.4 97.4 Pulse 67 71 Resp 16 16 B/P (MAP) 121/39 (66) 112/61 (78) Pulse Ox 98 97 O2 Delivery Nasal Cannula Nasal Cannula Nasal Cannula Nasal Cannula O2 Flow Rate 3.0 3.0 3.0 3.0 05/11/17 05/11/17 05/11/17 05/11/17 07:30 08:39 08:40 08:55 Temp 97.5 97.5 Pulse 70 70 70 Resp 18 B/P (MAP) 136/51 (79) 136/51 136/51 Pulse Ox 99 97 O2 Delivery Nasal Cannula Nasal Cannula O2 Flow Rate 3.0 2.5 05/11/17 10:30 Temp 97.5 97.5 Pulse 77 Resp 18 B/P (MAP) 115/45 (68) Pulse Ox 97 O2 Delivery Nasal Cannula O2 Flow Rate 3.0 Intake and Output 05/11/17 05/11/17 05/12/17 15:00 23:00 07:00 Intake Total 120 ml Balance 120 ml MATT PAYTON MD May 11, 2017 11:46
[2017-05-11 11:49] LABS: % SAT IRON 21 % (15-34); IRON,SERUM 35 ug/dL (65-175)
--- NOTE | 2017-05-11 12:38 | PDOC ---
Subjective: Subjective: Pt not in room Objective: Vital Signs: Vital Signs Date Time Temp Pulse Resp B/P (MAP) Pulse Ox O2 Delivery O2 Flow Rate FiO2 05/11/17 11:49 97 Nasal Cannula 2.5 05/11/17 10:30 97.5 77 18 115/45 (68) 97.5 Labs: Laboratory Tests Test 05/11/17 09:00 05/11/17 10:53 Vancomycin Level Trough 19.3 mcg/mL (10.0-20.0) Vancomycin Last Dose Date 05/09/17 Vancomycin Last Dose Time 1300 Iron Level 35 ug/dL (65-175) Total Iron Binding Capacity 166 ug/dL (250-450) Iron Saturation 21 % (15-34) Ferritin 617 ng/mL (26-388) Physical Exam: Physical Exam: pt not in room Assessment & Plan: Assessment : 1. Anemia: Resolved. Indices suggest inflammatory 2. Upper abdominal pain: f/u abd sono 3. Gallstones: This may be the reason he is having some upper abdominal pain. At this time, his liver function tests are normal. Plan: f/u abd sono Problems: LETICIA CABALLERO MD May 11, 2017 12:38
--- NOTE | 2017-05-11 13:40 | RAD ---
Abdominal ultrasound, 05/11/2017: History: Gallbladder disease The gallbladder is at the upper limits of normal in size. It contains a single focus of increased echogenicity with posterior acoustic shadowing compatible with a gallstone. The gallbladder ruano are not thickened. No bile duct dilatation is seen. No hepatic abnormality is detected. The pancreas was obscured by overlying bowel. The spleen is within normal limits in size. No renal abnormality is detected. The abdominal aorta is not dilated. The inferior vena cava shows no abnormality. No free fluid is evident in the abdomen. A small amount of right-sided pleural fluid is noted. IMPRESSION: 1. Cholelithiasis. 2. No acute abdominal abnormality is detected. 3. Small right pleural effusion.
[2017-05-11 14:30] VITALS: BP 95/40
--- NOTE | 2017-05-11 15:55 | PDOC ---
PULMONARY PROGRESS NOTES Subjective NOT MORE SOA Vitals Vital Signs Date Time Temp Pulse Resp B/P (MAP) Pulse Ox O2 Delivery O2 Flow Rate FiO2 05/11/17 15:42 97 Nasal Cannula 2.5 05/11/17 10:30 97.5 77 18 115/45 (68) 97.5 General: Alert, No acute distress Lungs: Crackles, Other (decrease bases) Cardiovascular: S1 Abdomen: Soft Neuro Exam: Alert Extremities: No Edema Skin: Warm Labs Laboratory Tests Test 05/10/17 10:55 05/10/17 12:30 05/11/17 09:00 05/11/17 10:53 Stool Occult Blood Negative (NEG) White Blood Count 7.8 x10^3/uL (4.0-11.0) Red Blood Count 3.69 x10^6/uL (4.30-5.70) Hemoglobin 11.3 g/dL (13.0-17.5) Hematocrit 33.5 % (39.0-53.0) Mean Corpuscular Volume 91 fL (79-100) Mean Corpuscular Hemoglobin 31 pg (25-35) Mean Corpuscular Hemoglobin Concent 34 g/dL (31-37) Red Cell Distribution Width 13.2 % (11.5-14.5) Platelet Count 190 x10^3/uL (140-400) Sodium Level 140 mmol/L (136-145) Potassium Level 4.5 mmol/L (3.5-5.1) Chloride Level 103 mmol/L (98-107) Carbon Dioxide Level 33 mmol/L (21-32) Anion Gap 4 (6-14) Blood Urea Nitrogen 17 mg/dL (8-26) Creatinine 1.4 mg/dL (0.7-1.3) Estimated GFR (Cockcroft-Gault) 50.1 Glucose Level 91 mg/dL (70-99) Calcium Level 9.0 mg/dL (8.5-10.1) Vancomycin Level Trough 19.3 mcg/mL (10.0-20.0) Vancomycin Last Dose Date 05/09/17 Vancomycin Last Dose Time 1300 Iron Level 35 ug/dL (65-175) Total Iron Binding Capacity 166 ug/dL (250-450) Iron Saturation 21 % (15-34) Ferritin 617 ng/mL (26-388) Laboratory Tests Test 05/11/17 09:00 05/11/17 10:53 Vancomycin Level Trough 19.3 mcg/mL (10.0-20.0) Vancomycin Last Dose Date 05/09/17 Vancomycin Last Dose Time 1300 Iron Level 35 ug/dL (65-175) Total Iron Binding Capacity 166 ug/dL (250-450) Iron Saturation 21 % (15-34) Ferritin 617 ng/mL (26-388) Medications Active Scripts Medications Dose Route/Sig Max Daily Dose Days Date Category [Ambivent Respimat] PO DAILY 05/07/17 Reported Prednisone 10 Mg Tablet 10 Mg PO DAILY 05/07/17 Reported Klor-Con 10 (Potassium Chloride) 10 Meq Tablet.er 10 Meq PO DAILY 08/26/16 Reported Lisinopril 10 Mg Tablet 10 Mg PO DAILY 08/26/16 Reported Lasix (Furosemide) 40 Mg Tablet 40 Mg PO DAILY 08/26/16 Reported Albuterol Sulfate Conc Neb Soln (Albuterol Sulfate) 2.5 Mg/0.5 Ml Vial.neb 1 Vial NEB Q6HRS 08/26/16 Reported Ventolin Hfa Inhaler (Albuterol Sulfate) 18 Gm Hfa.aer.ad 2 Puff INH QID 08/26/16 Reported Combivent Respimat Inhal (Ipratropium/Albuterol Sulfate) 4 Gm Aer.w.adap 2 Inh IH QID 08/26/16 Reported Verapamil Er (Verapamil Hcl) 120 Mg Cap24h.pel 120 Mg PO DAILY 08/26/16 Reported Impression . AECOPD GRAM NEG PNEUMONIA ABNORMAL CXR RUL/JEFRY INFILTRATE Probable cholelithiasis. 1. Severe emphysema changes. 2. New Ill-defined opacities in the right upper lobe and left upper lobe as described above may represent confluent fibrosis. However, lung malignancy is not ruled out. Short-term follow-up in 3 months and/or PET/CT recommended. 3. Stable thickening of the bilateral apical pleura. Plan . CONTINUE ANITBX VANCO AND LEVAQUIN FOLLOW SPUTUM CULTURE REPEAT CT IN 6-8 WEEKS NO NEED FOR BRONCH AT THIS TIME FOLLOW GI INPUT MICAELA TORRES MD May 11, 2017 15:55
[2017-05-11 19:00] VITALS: BP 120/47
[2017-05-11 22:43] VITALS: BP 116/51
[2017-05-12 02:52] VITALS: BP 122/49
[2017-05-12 06:12] LABS: HEMATOCRIT 29.3 % (39.0-53.0); HEMOGLOBIN 10.1 g/dL (13.0-17.5); RED BLOOD COUNT 3.29 x10^6/uL (4.30-5.70); RED CELL DISTRIBUTION WIDTH 13.1 % (11.5-14.5); WHITE BLOOD COUNT 9.8 x10^3/uL (4.0-11.0)
[2017-05-12 06:25] LABS: CALCIUM 8.5 mg/dL (8.5-10.1); CREATININE 1.3 mg/dL (0.7-1.3); GFR 54.6; POTASSIUM 4.5 mmol/L (3.5-5.1)
[2017-05-12 07:00] VITALS: BP 124/49
[2017-05-12] MEDS: ALBUTEROL SULFATE 2.5 MG/3 ML NEBU. NEB SCH ×3 (08:14→15:37)
[2017-05-12] MEDS: LISINOPRIL 10 MG TABLET PO SCH (09:09)
[2017-05-12] MEDS: VERAPAMIL SR 120 MG TABLET.ER. PO SCH (09:10)
[2017-05-12] MEDS: POLYETHYLENE GLYCOL 3350 17 GM PACKET. PO SCH (09:10)
[2017-05-12] MEDS: ENOXAPARIN 40 MG/0.4 ML SYRINGE. SQ SCH (09:11)
[2017-05-12 09:14] LABS: FOLATE 12.29 ng/ml (3.2-20.0)
--- NOTE | 2017-05-12 09:20 | DS ---
DATE OF DISCHARGE: 05/12/2017 DATE OF ADMISSION: 05/07/2017 DATE OF DISCHARGE: 05/12/2017 ADMITTING DIAGNOSIS: [id number] respiratory failure. SECONDARY DIAGNOSES: 1. Community-acquired pneumonia. 2. [id number] renal failure. 3. Abdominal pain. 4. Cholelithiasis. 5. Anemia. 6. Chronic obstructive pulmonary disease exacerbation. 7. Peripheral vascular disease. 8. Hypertension. HISTORY OF PRESENT ILLNESS AND HOSPITAL COURSE: This patient is a 71-year-old male who was directly admitted to the hospital from the office with low oxygen saturations despite 5 liters of oxygen. The patient was found to have pneumonia by chest x-ray and CT and treated with IV antibiotics. The patient stabilized throughout hospital stay, began having increasing abdominal pain with ongoing constipation. GI was consulted and found no acute bleeding despite low hemoglobin. His hemoglobin improved and was deemed to be hydration changes. The patient began having regular bowel movements and pain improved. PT and OT deemed the patient stable for transfer to home with assist. The patient does live with his brother. DISCHARGE MEDICATIONS: The patient was discharged to home on the following medications: Levofloxacin 500 mg 1 tablet daily for 5 more days, albuterol nebulizer treatments q.4 hours, albuterol inhaler 2 puffs q.4 hours p.r.n., Combivent Respimat inhaler 2 puffs q.i.d., lisinopril 10 mg daily, prednisone 10 mg daily, verapamil 120 mg daily. Lasix and potassium were discontinued and weights will be followed. The patient's discharge weight was 165. FOLLOWUP: He will follow up in one week for continued evaluation. Discharge hemoglobin was 10.1 and BUN and creatinine were back to 9 and 1.3. Of note, iron stores were low, but ferritin was high. MATT PAYTON MD DR: JEFFRY/james JOB#: [id number] / [id number]
[2017-05-12] MEDS: VANCOMYCIN 1 GM in IV NORMAL SALINE 250ML 250 ML IV SCH (09:23)
--- NOTE | 2017-05-12 10:50 | PDOC ---
Subjective: Subjective: Says vomited last night and "couldn't get breakfast down" this morning. Doesn' t like food. Denies bleeding. Says stooling. Occasional mid abd pain, says unrelated to eating. Really wants to go home. Objective: Objective: Note DC orders. No GI concerns per RN. Per aide - helped to bathroom this morning for BM. No witnessed emesis by staff. Vital Signs: Vital Signs Date Time Temp Pulse Resp B/P (MAP) Pulse Ox O2 Delivery O2 Flow Rate FiO2 05/12/17 09:10 84 124/49 05/12/17 08:14 94 Nasal Cannula 2.5 05/12/17 07:00 100.4 18 100.4 Labs: Laboratory Tests Test 05/11/17 10:53 05/12/17 05:15 Iron Level 35 ug/dL Total Iron Binding Capacity 166 ug/dL Iron Saturation 21 % Ferritin 617 ng/mL Vitamin B12 Level 220 pg/mL Serum Folate 12.29 ng/ml White Blood Count 9.8 x10^3/uL Red Blood Count 3.29 x10^6/uL Hemoglobin 10.1 g/dL Hematocrit 29.3 % Mean Corpuscular Volume 89 fL Mean Corpuscular Hemoglobin 31 pg Mean Corpuscular Hemoglobin Concent 34 g/dL Red Cell Distribution Width 13.1 % Platelet Count 166 x10^3/uL Sodium Level 140 mmol/L Potassium Level 4.5 mmol/L Chloride Level 103 mmol/L Carbon Dioxide Level 30 mmol/L Anion Gap 7 Blood Urea Nitrogen 9 mg/dL Creatinine 1.3 mg/dL Estimated GFR (Cockcroft-Gault) 54.6 Glucose Level 79 mg/dL Calcium Level 8.5 mg/dL Imaging: Abd US IMPRESSION: 1. Cholelithiasis. 2. No acute abdominal abnormality is detected. 3. Small right pleural effusion. PE: GEN: NAD LUNGS: decreased HEART: RRR ABD: S/ND/NT NEURO/PSYCH: A & O 3 A/P: Anemia, fecal occult negative -fluctuating Hgb w/o overt bleeding -no previous EGD, colonoscopy 6 years ago -iron studies suggestive of ACD, B12 low Abd pain - intermittent Cholelithiasis -normal LFTs Constipation - resolved w/ Mag Citrate ?vomiting COPD, pneumonia -per pulm -- Note DC orders. D/w RN - will observe for recurrent vomiting before DC. Start B12 replacement. Other per Dr. Rodgers. ANA YAP May 12, 2017 10:50
[2017-05-12 11:00] VITALS: BP 111/57
[2017-05-12] MEDS ORDERED: CYANOCOBALAMIN (VITAMIN B-12) 1,000 MCG TABLET. PO SCH (11:00)
[2017-05-12 15:07] VITALS: BP 123/52
--- NOTE | 2017-05-12 16:40 | PDOC ---
PULMONARY PROGRESS NOTES Subjective NOT MORE SOA Vitals Vital Signs Date Time Temp Pulse Resp B/P (MAP) Pulse Ox O2 Delivery O2 Flow Rate FiO2 05/12/17 15:38 Nasal Cannula 2.5 05/12/17 15:07 98.2 75 18 123/52 (75) 96 98.2 General: Alert, No acute distress Lungs: Crackles, Other (decrease bases) Cardiovascular: S1 Abdomen: Soft Neuro Exam: Alert Extremities: No Edema Skin: Warm Labs Laboratory Tests Test 05/11/17 09:00 05/11/17 10:53 05/12/17 05:15 Vancomycin Level Trough 19.3 mcg/mL (10.0-20.0) Vancomycin Last Dose Date 05/09/17 Vancomycin Last Dose Time 1300 Iron Level 35 ug/dL (65-175) Total Iron Binding Capacity 166 ug/dL (250-450) Iron Saturation 21 % (15-34) Ferritin 617 ng/mL (26-388) Vitamin B12 Level 220 pg/mL (247-911) Serum Folate 12.29 ng/ml (3.2-20.0) White Blood Count 9.8 x10^3/uL (4.0-11.0) Red Blood Count 3.29 x10^6/uL (4.30-5.70) Hemoglobin 10.1 g/dL (13.0-17.5) Hematocrit 29.3 % (39.0-53.0) Mean Corpuscular Volume 89 fL (79-100) Mean Corpuscular Hemoglobin 31 pg (25-35) Mean Corpuscular Hemoglobin Concent 34 g/dL (31-37) Red Cell Distribution Width 13.1 % (11.5-14.5) Platelet Count 166 x10^3/uL (140-400) Sodium Level 140 mmol/L (136-145) Potassium Level 4.5 mmol/L (3.5-5.1) Chloride Level 103 mmol/L (98-107) Carbon Dioxide Level 30 mmol/L (21-32) Anion Gap 7 (6-14) Blood Urea Nitrogen 9 mg/dL (8-26) Creatinine 1.3 mg/dL (0.7-1.3) Estimated GFR (Cockcroft-Gault) 54.6 Glucose Level 79 mg/dL (70-99) Calcium Level 8.5 mg/dL (8.5-10.1) Laboratory Tests Test 05/12/17 05:15 White Blood Count 9.8 x10^3/uL (4.0-11.0) Red Blood Count 3.29 x10^6/uL (4.30-5.70) Hemoglobin 10.1 g/dL (13.0-17.5) Hematocrit 29.3 % (39.0-53.0) Mean Corpuscular Volume 89 fL (79-100) Mean Corpuscular Hemoglobin 31 pg (25-35) Mean Corpuscular Hemoglobin Concent 34 g/dL (31-37) Red Cell Distribution Width 13.1 % (11.5-14.5) Platelet Count 166 x10^3/uL (140-400) Sodium Level 140 mmol/L (136-145) Potassium Level 4.5 mmol/L (3.5-5.1) Chloride Level 103 mmol/L (98-107) Carbon Dioxide Level 30 mmol/L (21-32) Anion Gap 7 (6-14) Blood Urea Nitrogen 9 mg/dL (8-26) Creatinine 1.3 mg/dL (0.7-1.3) Estimated GFR (Cockcroft-Gault) 54.6 Glucose Level 79 mg/dL (70-99) Calcium Level 8.5 mg/dL (8.5-10.1) Medications Active Scripts Medications Dose Route/Sig Max Daily Dose Days Date Category [Ambivent Respimat] PO DAILY 05/07/17 Reported Prednisone 10 Mg Tablet 10 Mg PO DAILY 05/07/17 Reported Klor-Con 10 (Potassium Chloride) 10 Meq Tablet.er 10 Meq PO DAILY 08/26/16 Reported Lisinopril 10 Mg Tablet 10 Mg PO DAILY 08/26/16 Reported Lasix (Furosemide) 40 Mg Tablet 40 Mg PO DAILY 08/26/16 Reported Albuterol Sulfate Conc Neb Soln (Albuterol Sulfate) 2.5 Mg/0.5 Ml Vial.neb 1 Vial NEB Q6HRS 08/26/16 Reported Ventolin Hfa Inhaler (Albuterol Sulfate) 18 Gm Hfa.aer.ad 2 Puff INH QID 08/26/16 Reported Combivent Respimat Inhal (Ipratropium/Albuterol Sulfate) 4 Gm Aer.w.adap 2 Inh IH QID 08/26/16 Reported Verapamil Er (Verapamil Hcl) 120 Mg Cap24h.pel 120 Mg PO DAILY 08/26/16 Reported Impression . AECOPD GRAM NEG PNEUMONIA ABNORMAL CXR RUL/JEFRY INFILTRATE Probable cholelithiasis. 1. Severe emphysema changes. 2. New Ill-defined opacities in the right upper lobe and left upper lobe as described above may represent confluent fibrosis. However, lung malignancy is not ruled out. Short-term follow-up in 3 months and/or PET/CT recommended. 3. Stable thickening of the bilateral apical pleura. Plan . SO FAR CULTURES NEGATIVE D/C HOME NO NEED FOR BRONCH AT THIS TIME FOLLOW UP IN OFFICE REPEAT CT 4-6 WEEKS MICAELA TORRES MD May 12, 2017 16:40
== END 2017-05-12 19:47 | disposition home or self-care (01) | DRG 682 ==
LOC: ER 09:59 → 5 NORTH 11:07
PROVIDERS: ADMIT Family Medicine; ATTEND Family Medicine
DX: N17.9 Acute kidney failure, unspecified (principal); J96.21 Acute and chronic respiratory failure with hypoxia; J15.6 Pneumonia due to other Gram-negative bacteria; I13.0 Hypertensive heart and chronic kidney disease with heart failure and stage 1 through stage 4 chronic kidney disease, or unspecified chronic kidney disease; I50.9 Heart failure, unspecified; Z99.81 Dependence on supplemental oxygen; D51.0 Vitamin B12 deficiency anemia due to intrinsic factor deficiency; J44.0 Chronic obstructive pulmonary disease with (acute) lower respiratory infection; J44.1 Chronic obstructive pulmonary disease with (acute) exacerbation; G62.9 Polyneuropathy, unspecified; H54.7 Unspecified visual loss; I73.9 Peripheral vascular disease, unspecified; K59.00 Constipation, unspecified; K80.20 Calculus of gallbladder without cholecystitis without obstruction; N18.9 Chronic kidney disease, unspecified; Z79.51 Long term (current) use of inhaled steroids; Z79.899 Other long term (current) drug therapy; Z80.3 Family history of malignant neoplasm of breast; Z82.49 Family history of ischemic heart disease and other diseases of the circulatory system; Z82.5 Family history of asthma and other chronic lower respiratory diseases; Z86.11 Personal history of tuberculosis; Z87.891 Personal history of nicotine dependence; D53.9 Nutritional anemia, unspecified
CPT/HCPCS: 36415; 71010; 71250; 74176; 76700; 80048; 80053; 80202; 82274; 82607; 82728; 82746; 83540; 83550; 83605; 83921; 85007; 85025; 85027; 87040; 87070; 87205; 93005; 94250; 94640; 94760; 96374; J1650; J1956; J2930; J3370; J7030; J7040; J7050; J7613; J7620; 99285-25

== ENCOUNTER → 2017-07-03 | Outpatient (CLI) | payer MEDICARE ==
[~2017-07-03] MED LIST changes: +LEVO500T59 PO; +PRED-220 PO; +[UNRECOGNIZED DRUG - OTHER] PO
--- NOTE | 2017-07-03 09:59 | RAD ---
CT of the chest without contrast, 07/03/2017: History: Follow-up lung nodules, emphysema Noncontrast scans were obtained and compared to a study from 05/07/2017. There is calcific plaquing of the thoracic aorta. 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 Scattered coronary artery calcifications are present. The heart size is normal. No mediastinal adenopathy is seen. There are severe emphysematous changes in the lungs with multiple blebs and bullae. There are streaky parenchymal opacities and pleural thickening, particularly over the apices. The majority of these opacities opacities are unchanged and are compatible with scarring. Single small parenchymal densities described in the right upper and left upper lobes on the 05/07/2017 study have regressed, compatible with an inflammatory etiology. There are granulomatous calcifications, most numerous on the right. No new or enlarging pulmonary densities are seen. A small amount of right-sided pleural fluid has developed. IMPRESSION: 1. Severe pulmonary emphysema with extensive pleural-parenchymal scarring. 2. No new or enlarging pulmonary opacities are seen. 3. Calcific plaquing of the aorta and coronary arteries. 4. Minimal right pleural fluid has developed. PQRS Compliance Statement: One or more of the following individualized dose reduction techniques were utilized for this examination: 1. Automated exposure control 2. Adjustment of the mA and/or kV according to patient size 3. Use of iterative reconstruction technique
== END | disposition home or self-care (01) ==
LOC: CT 08:43
PROVIDERS: ATTEND Internal Medicine Pulmonary Disease
DX: J43.9 Emphysema, unspecified (principal)
CPT/HCPCS: 71250

== ENCOUNTER → 2018-04-20 | Outpatient (CLI) | payer MEDICARE ==
[2018-01-09 15:00] VITALS: BP 139/49
[~2018-04-20] MED LIST changes: +FERR325T14 PO; +GABA-585 PO; +POLY17PO3 PO; +POTA10TA12 PO; -POTA10TA5 PO
--- NOTE | 2018-04-20 17:27 | RAD ---
CT CHEST WO CONTRAST Indication: COPD, granuloma Technique: Noncontrast CT imaging was performed of the chest, multiplanar reconstruction images submitted. One or more of the following individualized dose reduction techniques were utilized for this examination: 1. Automated exposure control 2. Adjustment of the mA and/or kV according to patient size 3. Use of iterative reconstruction technique. Contrast: None Comparison: January 05, 2018 Findings: Previously seen infiltrative density of the right upper lobe has decreased, residual focus of nodularity about 1.5 cm in size also with groundglass density at the periphery. There is again severe emphysema. There is again large calcified nodule of the right middle lobe. There is no significant pleural fluid. There is no pneumothorax. There is some reticular density bilaterally likely due to fibrotic change. There is coronary calcification. There are some calcified mediastinal and right hilar nodes as seen previously. No new significant lymphadenopathy is identified. There is some pleural thickening near the lung apices bilaterally as seen previously. IMPRESSION: 1. Previously seen infiltrate of the right upper lobe has decreased, some residual nodularity for which continued surveillance advised such as in 4-6 months. 2. There is again severe emphysema. 3. There is coronary calcification. Electronically signed by: Len Roach MD (04/20/2018 5:24 PM) [id number]
== END | disposition home or self-care (01) ==
LOC: CT 11:02
PROVIDERS: ATTEND Internal Medicine Pulmonary Disease
DX: J43.9 Emphysema, unspecified (principal); R91.8 Other nonspecific abnormal finding of lung field; I25.10 Atherosclerotic heart disease of native coronary artery without angina pectoris; J84.10 Pulmonary fibrosis, unspecified; I13.0 Hypertensive heart and chronic kidney disease with heart failure and stage 1 through stage 4 chronic kidney disease, or unspecified chronic kidney disease; N18.9 Chronic kidney disease, unspecified; E11.22 Type 2 diabetes mellitus with diabetic chronic kidney disease; E11.42 Type 2 diabetes mellitus with diabetic polyneuropathy; E11.51 Type 2 diabetes mellitus with diabetic peripheral angiopathy without gangrene; F17.200 Nicotine dependence, unspecified, uncomplicated; Z82.49 Family history of ischemic heart disease and other diseases of the circulatory system; Z80.3 Family history of malignant neoplasm of breast; Z80.8 Family history of malignant neoplasm of other organs or systems; Z82.5 Family history of asthma and other chronic lower respiratory diseases; Z79.51 Long term (current) use of inhaled steroids; Z79.899 Other long term (current) drug therapy
CPT/HCPCS: 71250

== ENCOUNTER → 2018-10-30 | Outpatient (CLI) | payer MEDICARE ==
[2018-01-09 15:00] VITALS: BP 139/49
[~2018-10-30] MED LIST changes: +POLY17PO28 PO; -POLY17PO3 PO
--- NOTE | 2018-10-30 11:36 | RAD ---
CT of the chest without contrast, 10/30/2018: HISTORY: COPD, follow-up infiltrate Noncontrast scans were obtained and compared to a study from 04/20/2018. There are extensive emphysematous changes in the lungs. Moderate scattered linear parenchymal opacities are compatible with scars. A calcific density in the right middle lobe is compatible with a granuloma. There are stable bilateral apical pleural-parenchymal opacities compatible with scarring. There is a tiny unchanged nodule related to an area of linear scarring in the anterolateral aspect of the right upper lobe. This solid appearing nodular component measures 7 mm on the axial images and is unchanged. This process is elongated in configuration on the sagittal images. No new pulmonary abnormality is seen. There is slight pleural thickening in the posterior costophrenic angle on the right, primarily due to scarring although there may be a trace amount of pleural fluid. There is moderate calcific plaquing of the thoracic aorta without evidence of aneurysm. Scattered coronary artery calcifications are present. The heart is not enlarged. There are calcified subcarinal and right hilar lymph nodes due to old granulomatous disease. No mediastinal adenopathy is evident. There is a tiny radiopacity in the neck of the gallbladder compatible with a gallstone. There is a larger coarse calcification at the level of the gallbladder fundus probably representing an adherent gallstone versus a mural calcification. No pericholecystic edema is seen. IMPRESSION: 1. Severe pulmonary emphysema with pleural/parenchymal scarring. 2. Unchanged small right upper lobe nodular opacity, likely representing scarring. 3. Coronary artery disease. 4. Cholelithiasis. PQRS Compliance Statement: One or more of the following individualized dose reduction techniques were utilized for this examination: 1. Automated exposure control 2. Adjustment of the mA and/or kV according to patient size 3. Use of iterative reconstruction technique Electronically signed by: Berto Watts MD (10/30/2018 11:33 AM) [facility]
== END | disposition home or self-care (01) ==
LOC: CT 09:58
PROVIDERS: ATTEND Internal Medicine Pulmonary Disease
DX: J43.9 Emphysema, unspecified (principal); I25.10 Atherosclerotic heart disease of native coronary artery without angina pectoris; K80.20 Calculus of gallbladder without cholecystitis without obstruction; Z87.891 Personal history of nicotine dependence
CPT/HCPCS: 71250

== ENCOUNTER 2019-05-08 10:41 | Emergency (ER) | payer MEDICARE ==
[~2019-05-08] VITALS: Ht 180.3 cm; Wt 75.3 kg
[2019-05-08] MEDS ORDERED: IPRATRPIUM/ALBUTEROL 0.5/2.5MG 3 ML NEBU. NEB ONE (11:15)
--- NOTE | 2019-05-08 11:18 | PHYS DOC ---
Past Medical History Past Medical History: COPD, Hypertension, Pneumonia Past Surgical History: No Surgical History Alcohol Use: None Drug Use: None Adult General Chief Complaint Chief Complaint: feeling hot HPI HPI Patient is a 73 year old male with history of COPD with 2 L of home oxygen who presents with complaining of feeling hot. Patient complaining of episodes of hot flashes for the last 4 or 5 days and thought he had a fever without checking his temperature. Patient denies shortness of breath or cough more than his usual COPD cough, chills, urinary symptom, nausea and vomiting, chest pain, abdominal pain, diarrhea or constipation. Patient was afebrile at arrival to ER. Review of Systems Review of Systems Constitutional: Reports subjective fever Eyes: Denies change in visual acuity, redness, or eye pain [] HENT: Denies nasal congestion or sore throat [] Respiratory: Reports chronic cough and shortness of breath Cardiovascular: No additional information not addressed in HPI [] GI: Denies abdominal pain, nausea, vomiting, bloody stools or diarrhea [] : Denies dysuria or hematuria [] Musculoskeletal: Denies back pain or joint pain [] Integument: Denies rash or skin lesions [] Neurologic: Denies headache, focal weakness or sensory changes [] Endocrine: Denies polyuria or polydipsia [] All other systems were reviewed and found to be within normal limits, except as documented in this note. Current Medications Current Medications Current Medications Medications (Trade) Dose Ordered Sig/Radha Start Time Stop Time Status Last Admin Dose Admin Albuterol/ Ipratropium (Duoneb) 3 ml 1X ONCE 05/08/19 11:15 05/08/19 11:22 DC 05/08/19 11:27 3 ML Allergies Allergies Allergies Coded Allergies Type Severity Reaction Last Updated Verified No Known Drug Allergies 01/08/18 No Physical Exam Physical Exam Constitutional: Well developed, well nourished, mild distress, non-toxic appearance. [] HENT: Normocephalic, atraumatic. Eyes: PERRLA, EOMI, conjunctiva normal, no discharge. [] Neck: Normal range of motion, no tenderness, supple, no stridor. [] Cardiovascular:Heart rate regular rhythm, no murmur [] Lungs & Thorax: Bilateral rhonchi and wheezing without respiratory distress Abdomen: Bowel sounds normal, soft, no tenderness, no masses, no pulsatile masses. [] Skin: Warm, dry, no erythema, no rash. [] Back: No tenderness, no CVA tenderness. [] Extremities: No tenderness, no cyanosis, no clubbing, ROM intact, no edema. [] Neurologic: Alert and oriented X 3, no focal deficits noted. [] Psychologic: Affect normal, judgement normal, mood normal. [] Current Patient Data Vital Signs Vital Signs Date Time Temp Pulse Resp B/P (MAP) Pulse Ox O2 Delivery O2 Flow Rate FiO2 05/08/19 14:09 60 16 154/77 (102) 98 Room Air 05/08/19 11:28 2.0 05/08/19 10:45 97.7 97.7 Lab Values Laboratory Tests Test 05/08/19 11:05 05/08/19 11:25 05/08/19 13:05 White Blood Count 11.4 x10^3/uL (4.0-11.0) H Red Blood Count 4.58 x10^6/uL (4.30-5.70) Hemoglobin 14.1 g/dL (13.0-17.5) Hematocrit 41.5 % (39.0-53.0) Mean Corpuscular Volume 91 fL (79-100) Mean Corpuscular Hemoglobin 31 pg (25-35) Mean Corpuscular Hemoglobin Concent 34 g/dL (31-37) Red Cell Distribution Width 13.1 % (11.5-14.5) Platelet Count 177 x10^3/uL (140-400) Neutrophils (%) (Auto) 91 % (31-73) H Lymphocytes (%) (Auto) 5 % (24-48) L Monocytes (%) (Auto) 3 % (0-9) Eosinophils (%) (Auto) 1 % (0-3) Basophils (%) (Auto) 0 % (0-3) Neutrophils # (Auto) 10.5 x10^3/uL (1.8-7.7) H Lymphocytes # (Auto) 0.6 x10^3/uL (1.0-4.8) L Monocytes # (Auto) 0.3 x10^3/uL (0.0-1.1) Eosinophils # (Auto) 0.1 x10^3/uL (0.0-0.7) Basophils # (Auto) 0.0 x10^3/uL (0.0-0.2) Segmented Neutrophils % 85 % (35-66) H Band Neutrophils % 1 % (0-9) Lymphocytes % 11 % (24-48) L Monocytes % 1 % (0-10) Eosinophils % 2 % (0-5) Platelet Estimate Adequate (ADEQUATE) Sodium Level 144 mmol/L (136-145) Potassium Level 4.3 mmol/L (3.5-5.1) Chloride Level 104 mmol/L (98-107) Carbon Dioxide Level 32 mmol/L (21-32) Anion Gap 8 (6-14) Blood Urea Nitrogen 11 mg/dL (8-26) Creatinine 1.3 mg/dL (0.7-1.3) Estimated GFR (Cockcroft-Gault) 54.3 BUN/Creatinine Ratio 8 (6-20) Glucose Level 78 mg/dL (70-99) Calcium Level 9.4 mg/dL (8.5-10.1) Total Bilirubin 0.5 mg/dL (0.2-1.0) Aspartate Amino Transferase (AST) 15 U/L (15-37) Alanine Aminotransferase (ALT) 19 U/L (16-63) Alkaline Phosphatase 56 U/L (46-116) Total Protein 7.6 g/dL (6.4-8.2) Albumin 3.7 g/dL (3.4-5.0) Albumin/Globulin Ratio 0.9 (1.0-1.7) L Lactic Acid Level 1.9 mmol/L (0.4-2.0) Urine Collection Type Unknown Urine Color Yellow Urine Clarity Clear Urine pH 6.0 Urine Specific [place] 1.025 Urine Protein 30 mg/dL (NEG-TRACE) Urine Glucose (UA) Negative mg/dL (NEG) Urine Ketones (Stick) Negative mg/dL (NEG) Urine Blood Trace (NEG) Urine Nitrite Negative (NEG) Urine Bilirubin Negative (NEG) Urine Urobilinogen Dipstick 0.2 mg/dL (0.2 mg/dL) Urine Leukocyte Esterase Negative (NEG) Urine RBC 0 /HPF (0-2) Urine WBC 0 /HPF (0-4) Urine Squamous Epithelial Cells Many /LPF Urine Bacteria 0 /HPF (0-FEW) Urine Mucus Marked /LPF Laboratory Tests 05/08/19 11:05 Laboratory Tests 05/08/19 11:05 EKG EKG [] Radiology/Procedures Radiology/Procedures [][facility] [address] [place] [address] IMAGING REPORT Signed PATIENT: DANILO FIERRO ACCOUNT: [id number] : 1945 LOCATION: ER AGE: 73 SEX: M EXAM STATUS: REG ER ORD. PHYSICIAN: MARITZA CULP MD REASON: subjective fever PROCEDURE: PORTABLE CHEST 1V Indication:Subjective fever. TECHNIQUE:Portable AP chest X-ray COMPARISON: CT chest from 10/30/2018. FINDINGS: Heart is normal in size. Lungs are hyperinflated with interstitial opacities and prominent bronchial markings. Calcified granuloma in the right middle lobe. No pneumothorax or pleural effusion. Visualized bony thorax within normal limits. IMPRESSION: COPD changes. Superimposed atypical/viral infection not ruled out. Electronically signed by: Marcial López DO (05/08/2019 11:38 AM) [facility] DICTATED and SIGNED BY: MARCIAL LÓPEZ DO DATE: 05/08/19 1138 Course & Med Decision Making Course & Med Decision Making Pertinent Labs and Imaging studies reviewed. (See chart for details) Evaluation of patient in ER showed 73-year-old male patient with history of COPD on home oxygen and complaining of subjective fever. Patient was afebrile in ER and had unremarkable evaluation except for chronic wheezing that improved with DuoNeb. Chest x-ray did not show infiltration and lactic acid 2000 white count was unremarkable. Plan discharge patient home to diagnose of COPD exacerbation. Dragon Disclaimer Dragon Disclaimer This electronic medical record was generated, in whole or in part, using a voice recognition dictation system. Departure Departure Impression: Primary Impression: COPD exacerbation Additional Impression: Anxiety about health Disposition: 01 HOME, SELF-CARE (at 1404) Condition: IMPROVED Referrals: MATT PAYTON MD (PCP) Patient Instructions: Chronic Obstructive Pulmonary Disease Additional Instructions: Continue home medication Follow-up with your primary care physician in 3-5 days Return to ER if not getting better Scripts Methylprednisolone (MEDROL) 4 Mg Tab.ds.pk 1 PKG PO UD for inflammation, #1 PKG Prov: MARITZA CULP MD 05/08/19 Problem Qualifiers MARITZA CULP MD May 08, 2019 11:18
[2019-05-08 11:31] LABS: BASO % 0 % (0-3); EOS # 0.1 x10^3/uL (0.0-0.7); EOS % 1 % (0-3); HEMATOCRIT 41.5 % (39.0-53.0); HEMOGLOBIN 14.1 g/dL (13.0-17.5); LYMPH # 0.6 x10^3/uL (1.0-4.8); LYMPH % 5 % (24-48); MEAN CORPUSCULAR HEMOGLOBIN 31 pg (25-35); MEAN CORPUSCULAR HGB CONC 34 g/dL (31-37); MEAN CORPUSCULAR VOLUME 91 fL (79-100); MONO # 0.3 x10^3/uL (0.0-1.1); MONO % 3 % (0-9); NEUT # 10.5 x10^3/uL (1.8-7.7); NEUT % 91 % (31-73); PLATELET COUNT 177 x10^3/uL (140-400); RED BLOOD COUNT 4.58 x10^6/uL (4.30-5.70); RED CELL DISTRIBUTION WIDTH 13.1 % (11.5-14.5); WHITE BLOOD COUNT 11.4 x10^3/uL (4.0-11.0)
[2019-05-08 11:35] LABS: CALCIUM 9.4 mg/dL (8.5-10.1); CREATININE 1.3 mg/dL (0.7-1.3)
[2019-05-08 11:36] LABS: GFR 54.3; POTASSIUM 4.3 mmol/L (3.5-5.1)
[2019-05-08 11:41] LABS: ALBUMIN 3.7 g/dL (3.4-5.0); ALBUMIN/GLOBULIN RATIO 0.9 (1.0-1.7); TOTAL BILIRUBIN 0.5 mg/dL (0.2-1.0); TOTAL PROTEIN 7.6 g/dL (6.4-8.2)
--- NOTE | 2019-05-08 11:41 | RAD ---
Indication:Subjective fever. TECHNIQUE:Portable AP chest X-ray COMPARISON: CT chest from 10/30/2018. FINDINGS: Heart is normal in size. Lungs are hyperinflated with interstitial opacities and prominent bronchial markings. Calcified granuloma in the right middle lobe. No pneumothorax or pleural effusion. Visualized bony thorax within normal limits. IMPRESSION: COPD changes. Superimposed atypical/viral infection not ruled out. Electronically signed by: Marcial López DO (05/08/2019 11:38 AM) [facility]
[2019-05-08 12:41] LABS: % BANDS 1 % (0-9); % EOS 2 % (0-5); % LYMPHS 11 % (24-48); % MONOS 1 % (0-10); % SEGS 85 % (35-66); PLT ESTIMATE ADEQUATE (ADEQUATE)
[2019-05-08 13:23] LABS: BILIRUBIN,URINE NEGATIVE (NEG); CLARITY,URINE CLEAR; COLOR,URINE YELLOW; NITRITE,URINE NEGATIVE (NEG); PROTEIN,URINE 30 mg/dL (NEG-TRACE); UROBILINOGEN,URINE 0.2 mg/dL (0.2 mg/dL)
[2019-05-08 13:35] LABS: BACTERIA,URINE 0 /HPF (0-FEW); RBC,URINE 0 /HPF (0-2); SQUAMOUS EPITHELIAL CELL,UR MANY /LPF; WBC,URINE 0 /HPF (0-4)
[2019-05-08] MEDS ORDERED: METH4TAB2 PO (14:06)
[2019-05-08 14:09] VITALS: BP 154/77
== END 2019-05-08 14:20 | disposition home or self-care (01) ==
LOC: ER 10:41
DX: J44.1 Chronic obstructive pulmonary disease with (acute) exacerbation (principal); F41.9 Anxiety disorder, unspecified; I10 Essential (primary) hypertension
CPT/HCPCS: 36415; 71045; 80053; 81001; 83605; 85007; 85025; 94640; 99285; J7620